=== PATIENT | female | born 1955 | race Caucasian/White ===

== ENCOUNTER 2018-10-06 21:52 | Emergency (ER) | payer OTHER ==
[2018-10-06 22:46] LABS: Absolute Monocytes 0.9 K/uL (0.1-1.3); Basophils % 0.6 % (0-1.3); Eosinophils % 0.4 % (0-4.4); Hematocrit 41.3 % (36.0-45.0); Lymphocytes % 7.6 % (15.3-44.8); MPV 9.1 fL (7.6-11.3); RBC Red Blood Cell Count 4.67 M/uL (3.86-4.86)
[2018-10-06 22:51] LABS: Protime INR 1.03
[2018-10-06] MEDS ORDERED: MORPHINE 4 MG/ML SYR ONE (23:02)
[2018-10-06] MEDS ORDERED: METHOCARBAMOL 1,000 MG/10 ML VIAL IV ONE (23:02)
[2018-10-06] MEDS ORDERED: ONDANSETRON 4 MG/2 ML VIAL ONE (23:03)
[2018-10-06] MEDS ORDERED: NA CHLORIDE 0.9% 1,000 ML ONE (23:03)
[2018-10-06] MEDS ORDERED: NA CHLORIDE 0.9% 100 ML IV ONE (23:03)
[2018-10-06 23:10] LABS: Albumin 3.5 g/dL (3.4-5.0); Bilirubin Direct 0.1 mg/dL (0-0.2); Bilirubin Total 0.3 mg/dL (0.2-1.0); Magnesium 2.1 mg/dL (1.8-2.4); Protein, Total 6.9 g/dL (6.4-8.2)
[2018-10-06 23:11] LABS: Potassium 2.9 mmol/L (3.5-5.1)
[2018-10-06] MEDS ORDERED: POTASSIUM CL SA 10 MEQ TAB PO ONE (23:31)
[2018-10-06] MEDS ORDERED: KCL 20 MEQ/100 mL IVPB 20 MEQ/100 ML BAG IV ONE (23:31)
[2018-10-07] MEDS ORDERED: HYDROCODONE/APAP 7.5/325 MG TAB ONE (01:29)
--- NOTE | 2018-10-07 02:41 | ER ---
Nurse's Notes [facility] Name: Vandana Garcia Age: 63 yrs Sex: Female : 1955 Arrival Date: 10/06/2018 Time: 21:57 Bed 8 Private MD: Diagnosis: Hypokalemia;Muscle spasm;Pain in left ankle and joints of left foot Presentation: 10/06 21:58 Presenting complaint: Patient states: Bilateral leg cramps starting in upper thigh and tl2 radiating down to ankles, started about 1 hour ago. EMS gave 5 mg Versed IVP, pt states pain has decreased from 10/10 to 4/10. Transition of care: patient was not received from another setting of care. Onset of symptoms was October 06, 2018 at 21:00. Risk Assessment: Do you want to hurt yourself or someone else? Patient reports no desire to harm self or others. Initial Sepsis Screen: Does the patient meet any 2 criteria? No. Patient's initial sepsis screen is negative. Does the patient have a suspected source of infection? No. Patient's initial sepsis screen is negative. Care prior to arrival: Medication(s) given: 5 mg Versed IVP IV initiated. 20 GA, in the right forearm. 21:58 Method Of Arrival: EMS: [facility] tl2 21:58 Acuity: FEDE 3 tl2 Triage Assessment: 22:03 General: Appears in no apparent distress. uncomfortable, Behavior is calm, cooperative, tl2 appropriate for age. Pain: Complains of pain in right leg and left leg Pain radiates to SEGUNDO ankles Pain currently is 4 out of 10 on a pain scale. Quality of pain is described as crampy, Pain began 1 hour ago. Is intermittent, episodic. Neuro: Level of Consciousness is awake, alert, obeys commands, Oriented to person, place, time, situation. Cardiovascular: Denies chest pain. Respiratory: Airway is patent Respiratory effort is even, unlabored, Respiratory pattern is regular, symmetrical. GI: No signs and/or symptoms were reported involving the gastrointestinal system. : No signs and/or symptoms were reported regarding the genitourinary system. Derm: Skin is pink, warm \T\ dry. Historical: - Allergies: 22:03 Zithromax; tl2 22:03 Phenergan; tl2 - Home Meds: 22:03 carvedilol oral oral [Active]; hydrochlorothiazide Oral [Active]; sertraline oral oral tl2 [Active]; - PMHx: 22:03 Hypertension; Depression; tl2 - Immunization history:: Adult Immunizations up to date. - Social history:: Smoking status: Patient/guardian denies using tobacco. - Ebola Screening: : No symptoms or risks identified at this time. Screenin:05 Abuse screen: Denies threats or abuse. Nutritional screening: No deficits noted. tl2 Tuberculosis screening: No symptoms or risk factors identified. Fall Risk Gait- Impaired (20 pts.). Assessment: 22:03 General: see triage assessment. tl2 23:00 Reassessment: Patient appears in no apparent distress at this time. Patient and/or tl2 family updated on plan of care and expected duration. Pain level reassessed. Patient is alert, oriented x 3, equal unlabored respirations, skin warm/dry/pink. 10/07 00:00 Reassessment: Patient appears in no apparent distress at this time. Patient and/or tl2 family updated on plan of care and expected duration. Pain level reassessed. Pt appears to be sleeping, RR even and unlabored. 00:58 Reassessment: Patient appears in no apparent distress at this time. tl2 01:40 Reassessment: Patient appears in no apparent distress at this time. Patient and/or tl2 family updated on plan of care and expected duration. Pain level reassessed. Patient is alert, oriented x 3, equal unlabored respirations, skin warm/dry/pink. pt able to bear weight on legs but reports pain in left ankle. Awaiting results of repeat K level. 02:49 Reassessment: Unable to reach family, MD and charge nurse approved pt staying in ER tl2 until 0600. 04:00 Reassessment: Patient appears in no apparent distress at this time. Patient and/or tl2 family updated on plan of care and expected duration. Pain level reassessed. pt appears to be sleeping, RR even and unlabored. 06:13 Reassessment: Patient appears in no apparent distress at this time. Patient and/or tl2 family updated on plan of care and expected duration. Pain level reassessed. Patient is alert, oriented x 3, equal unlabored respirations, skin warm/dry/pink. Pt verbalized understanding of discharge instructions, need for follow up and prescription usage. Vital Signs: 10/06 22:03 BP 116 / 70; Pulse 89; Resp 18; Temp 99.2(O); Pulse Ox 98% on R/A; Weight 105.69 kg; tl2 Height 5 ft. 7 in. (170.18 cm); Pain 4/10; 23:05 BP 111 / 64; Pulse 84; Resp 23; Pulse Ox 94% on R/A; tl2 23:51 BP 108 / 68; Pulse 84; Resp 18; Pulse Ox 98% on 2 lpm NC; tl2 10/07 00:57 BP 106 / 59; Pulse 84; Resp 16; Pulse Ox 97% on 2 lpm NC; tl2 01:39 BP 107 / 58; Pulse 86; Resp 24; Pulse Ox 97% on R/A; tl2 02:49 BP 108 / 63; Pulse 73; Resp 16; Pulse Ox 94% on R/A; tl2 05:35 BP 106 / 59; Pulse 66; Resp 18; Pulse Ox 96% on R/A; tl2 10/06 22:03 Body Mass Index 36.49 (105.69 kg, 170.18 cm) tl2 ED Course: 10/06 21:57 Patient arrived in ED. tl2 22:00 Triage completed. tl2 22:03 Arm band placed on right wrist. tl2 22:05 Patient has correct armband on for positive identification. Placed in gown. Bed in low tl2 position. Call light in reach. Side rails up X2. Adult w/ patient. 22:05 Maintain EMS IV. Dressing intact. Good blood return noted. Site clean \T\ dry. Gauge \T\ tl 2 site: 20 g R AC. 22:21 Ángel Olivas MD is Attending Physician. kdr 22:31 Ashley Stoddard RN is Primary Nurse. tl2 10/07 01:19 X-ray completed. Portable x-ray completed in exam room. Patient tolerated procedure tm4 well. 01:21 Ankle Left 3 View XRAY In Process Unspecified. EDMS 01:39 Potassium: Draw when all potassium has infused Sent. tl2 04:00 No provider procedures requiring assistance completed. IV discontinued, intact, tl2 bleeding controlled, No redness/swelling at site. Pressure dressing applied. Administered Medications: 10/06 23:03 Drug: NS 0.9% 1000 ml Route: IV; Rate: 1 bolus; Site: right antecubital; tl2 10/07 01:30 Follow up: IV Status: Completed infusion; IV Intake: 1000ml tl2 10/06 23:03 Drug: morphine 4 mg Route: IVP; Site: right antecubital; tl2 10/07 00:00 Follow up: Response: No adverse reaction; Pain is decreased tl2 10/06 23:04 Drug: Zofran 4 mg Route: IVP; Site: right antecubital; tl2 10/07 00:00 Follow up: Response: No adverse reaction tl2 10/06 23:04 Drug: Robaxin 1 grams Route: IVPB; Infused Over: 1 hrs; Site: right antecubital; tl2 10/07 00:00 Follow up: IV Status: Completed infusion tl2 10/06 23:51 Drug: Potassium Chloride 20 mEq Route: IV; Rate: calculated rate; Site: right tl2 antecubital; 10/07 01:30 Follow up: IV Status: Completed infusion tl2 01:38 Drug: [place] (7.5 mg-325 mg) 1 tabs Route: PO; tl2 02:30 Follow up: Response: No adverse reaction; Pain is decreased tl2 01:39 Drug: Potassium Chloride 40 mEq Route: PO; tl2 03:00 Follow up: Response: No adverse reaction tl2 06:16 Drug: Potassium Chloride 40 mEq Route: PO; tl2 06:19 Follow up: Response: No adverse reaction; Medication administered at discharge. tl2 Intake: 01:30 IV: 1000ml; Total: 1000ml. tl2 Outcome: 02:41 Discharge ordered by . kdr 04:00 Discharged to home via wheelchair, with crutches, with family. tl2 04:00 Condition: stable 04:00 Discharge instructions given to patient, family, Instructed on discharge instructions, follow up and referral plans. medication usage, crutch walking, Demonstrated understanding of instructions, follow-up care, medications, crutch walking, Prescriptions given X 5 06:20 Patient left the ED. tl2 Signatures: Dispatcher [employer] EDMS Ángel Olivas MD MD kdr Marroquin, Tracy 4 Ashley Stoddard RN RN tl2 Corrections: (The following items were deleted from the chart) 10/06 23:08 22:05 Maintain EMS IV. Dressing intact. Good blood return noted. Site clean \T\ dry. tl2 Gauge \T\ site: 20 g R FA. tl2 23:52 23:51 BP 108 / 68; Pulse 84bpm; Resp 18bpm; Pulse Ox 98% RA; tl2 tl2
--- NOTE | 2018-10-07 02:41 | EDPHYS ---
Physician Documentation [facility] Name: Vandana Garcia Age: 63 yrs Sex: Female : 1955 Arrival Date: 10/06/2018 Time: 21:57 Bed 8 Private MD: ED Physician Ángel Olivas HPI: 10/07 03:49 This 63 yrs old Female presents to ER via EMS with complaints of Leg cramps. kdr 03:49 The patient presents with pain, that is acute, spasm, The patient had acute onset of kdr leg cramps that were very painful earlier today. She also c/o pain and redness around the lateral aspect of her left ankle which also started today.. The complaints affect the right leg and left leg. Context: The problem was sustained at home, resulted from an unknown cause, the patient can fully bear weight, the patient is able to ambulate, with moderate difficulty, Problem is a result from a previous injury: No. Onset: The symptoms/episode began/occurred suddenly, today. Modifying factors: The symptoms are alleviated by nothing. the symptoms are aggravated by movement, weight bearing. Associated signs and symptoms: Pertinent positives: calf tenderness, The patient states that the entirety of both legs is cramping and painful. Treatment prior to arrival includes: EMS gave versed. Treatment prior to arrival includes: She had minor relief. Severity of symptoms: At their worst the symptoms were incapacitating, just prior to arrival, earlier today, in the emergency department the symptoms have improved, mildly. The patient has not experienced similar symptoms in the past. The patient has not recently seen a physician. Historical: - Allergies: 10/06 22:03 Zithromax; tl2 22:03 Phenergan; tl2 - Home Meds: 22:03 carvedilol oral oral [Active]; hydrochlorothiazide Oral [Active]; sertraline oral oral tl2 [Active]; - PMHx: 22:03 Hypertension; Depression; tl2 - Immunization history:: Adult Immunizations up to date. - Social history:: Smoking status: Patient/guardian denies using tobacco. - Ebola Screening: : No symptoms or risks identified at this time. ROS: 10/07 03:49 Constitutional: Negative for fever, chills, and weight loss, Eyes: Negative for injury, kdr pain, redness, and discharge, ENT: Negative for injury, pain, and discharge, Neck: Negative for injury, pain, and swelling, Cardiovascular: Negative for chest pain, palpitations, and edema, Respiratory: Negative for shortness of breath, cough, wheezing, and pleuritic chest pain, Abdomen/GI: Negative for abdominal pain, nausea, vomiting, diarrhea, and constipation, Back: Negative for injury and pain, : Negative for injury, bleeding, discharge, and swelling, Skin: Negative for injury, rash, and discoloration, Neuro: Negative for headache, weakness, numbness, tingling, and seizure activity. Psych: Negative for depression, anxiety, suicide ideation, homicidal ideation, and hallucinations, Allergy/Immunology: Negative for hives, rash, and allergies, Endocrine: Negative for neck swelling, polydipsia, polyuria, polyphagia, and marked weight changes, Hematologic/Lymphatic: Negative for swollen nodes, abnormal bleeding, and unusual bruising. MS/extremity: Positive for pain, cramping. Exam: 03:49 Constitutional: This is a well developed, well nourished patient who is awake, alert, kdr and in moderate distress. Head/Face: Normocephalic, atraumatic. Eyes: Pupils equal round and reactive to light, extra-ocular motions intact. Lids and lashes normal. Conjunctiva and sclera are non-icteric and not injected. Cornea within normal limits. Periorbital areas with no swelling, redness, or edema. Neck: Trachea midline, no thyromegaly or masses palpated, and no cervical lymphadenopathy. Supple, full range of motion without nuchal rigidity, or vertebral point tenderness. No Meningismus. Chest/axilla: Normal chest wall appearance and motion. Nontender with no deformity. No lesions are appreciated. Cardiovascular: Regular rate and rhythm with a normal S1 and S2. No gallops, murmurs, or rubs. Normal PMI, no JVD. No pulse deficits. Respiratory: Lungs have equal breath sounds bilaterally, clear to auscultation and percussion. No rales, rhonchi or wheezes noted. No increased work of breathing, no retractions or nasal flaring. Abdomen/GI: Soft, non-tender, with normal bowel sounds. No distension or tympany. No guarding or rebound. No evidence of tenderness throughout. Back: No spinal tenderness. No costovertebral tenderness. Full range of motion. Skin: Warm, dry with normal turgor. Normal color with no rashes, no lesions, and no evidence of cellulitis. Neuro: Awake and alert, GCS 15, oriented to person, place, time, and situation. Cranial nerves II-XII grossly intact. Motor strength 5/5 in all extremities. Sensory grossly intact. Cerebellar exam normal. Normal gait. Psych: Awake, alert, with orientation to person, place and time. Behavior, mood, and affect are within normal limits. 03:49 Musculoskeletal/extremity: Extremities: grossly normal except: The patient is messaging both legs trying to work the cramping out of her thighs, ROM: no acute changes, Circulation is intact in all extremities. Sensation intact. Weight bearing: able to fully bear weight. Vital Signs: 10/06 22:03 BP 116 / 70; Pulse 89; Resp 18; Temp 99.2(O); Pulse Ox 98% on R/A; Weight 105.69 kg; tl2 Height 5 ft. 7 in. (170.18 cm); Pain 4/10; 23:05 BP 111 / 64; Pulse 84; Resp 23; Pulse Ox 94% on R/A; tl2 23:51 BP 108 / 68; Pulse 84; Resp 18; Pulse Ox 98% on 2 lpm NC; tl2 02 00:57 BP 106 / 59; Pulse 84; Resp 16; Pulse Ox 97% on 2 lpm NC; tl2 01:39 BP 107 / 58; Pulse 86; Resp 24; Pulse Ox 97% on R/A; tl2 02:49 BP 108 / 63; Pulse 73; Resp 16; Pulse Ox 94% on R/A; tl2 05:35 BP 106 / 59; Pulse 66; Resp 18; Pulse Ox 96% on R/A; tl2 10/06 22:03 Body Mass Index 36.49 (105.69 kg, 170.18 cm) tl2 MDM: 02:41 Patient medically screened. kdr 03:49 Data reviewed: vital signs, nurses notes, lab test result(s). Counseling: I had a kdr detailed discussion with the patient and/or guardian regarding: the historical points, exam findings, and any diagnostic results supporting the discharge/admit diagnosis, lab results, the need for outpatient follow up. 06:12 ED course: Given only marginally elevated WBC and normal ESR not likely to be septic kdr joint. 10/06 22:28 Order name: Basic Metabolic Panel; Complete Time: 23:42 [facility] 10/06 22:28 Order name: CBC with Diff; Complete Time: 23:42 [facility] 10/06 22:28 Order name: LFT's; Complete Time: 23:42 [facility] 10/06 22:28 Order name: Magnesium; Complete Time: 23:42 [facility] 10/06 22:28 Order name: NT PRO-BNP; Complete Time: 23:42 [facility] 10/06 22:28 Order name: PT-INR; Complete Time: 23:42 [facility] 10/07 00:24 Order name: Potassium: Draw when all potassium has infused; Complete Time: 02:06 [facility] 10/07 01:06 Order name: Ankle Left 3 View XRAY kdr 10/07 01:06 Order name: ESR; Complete Time: 01:44 [facility] 10/06 22:28 Order name: IV Saline Lock; Complete Time: 22:32 [facility] 10/06 22:28 Order name: Labs collected and sent; Complete Time: 22:41 [facility] 10/07 06:20 Order name: Crutches; Complete Time: 06:20 tl2 Administered Medications: 10/06 23:03 Drug: NS 0.9% 1000 ml Route: IV; Rate: 1 bolus; Site: right antecubital; 2 10/07 01:30 Follow up: IV Status: Completed infusion; IV Intake: 1000ml tl2 10/06 23:03 Drug: morphine 4 mg Route: IVP; Site: right antecubital; tl2 10/07 00:00 Follow up: Response: No adverse reaction; Pain is decreased 2 10/06 23:04 Drug: Zofran 4 mg Route: IVP; Site: right antecubital; tl2 10/07 00:00 Follow up: Response: No adverse reaction 2 10/06 23:04 Drug: Robaxin 1 grams Route: IVPB; Infused Over: 1 hrs; Site: right antecubital; tl2 10/07 00:00 Follow up: IV Status: Completed infusion tl2 10/06 23:51 Drug: Potassium Chloride 20 mEq Route: IV; Rate: calculated rate; Site: right tl2 antecubital; 10/07 01:30 Follow up: IV Status: Completed infusion tl2 01:38 Drug: [place] (7.5 mg-325 mg) 1 tabs Route: PO; tl2 02:30 Follow up: Response: No adverse reaction; Pain is decreased tl2 01:39 Drug: Potassium Chloride 40 mEq Route: PO; tl2 03:00 Follow up: Response: No adverse reaction tl2 06:16 Drug: Potassium Chloride 40 mEq Route: PO; tl2 06:19 Follow up: Response: No adverse reaction; Medication administered at discharge. tl2 Disposition: 10/07/18 02:41 Discharged to Home. Impression: Hypokalemia, Muscle spasm, Pain in left ankle and joints of left foot. - Condition is Stable. - Discharge Instructions: Muscle Cramps and Spasms, [id number], Ankle Pain, Joint Pain, [id number], Hypokalemia. - Prescriptions for Keflex 500 mg Oral Capsule - take 1 capsule by ORAL route every 8 hours for 7 days; 21 capsule. Prednisone 20 mg Oral Tablet - take 2 tablet by ORAL route once daily for 5 days; 10 tablet. Tylenol- Codeine #3 300-30 mg Oral Tablet - take 2 tablets by ORAL route every 6 hours As needed; 12 tablet. Potassium Chloride 20 meq Oral Packet - take 1 packet by ORAL route once daily 1 packet in 6 (six) ounces of water or juice; Take after meal; 30 packet. Cyclobenzaprine 5 mg Oral Tablet - take 1 tablet by ORAL route 3 times per day As needed; 15 tablet. - Medication Reconciliation Form, Thank You Letter, Antibiotic Education, Prescription Opioid Use form. - Follow up: Private Physician; When: 2 - 3 days; Reason: If symptoms return, Further diagnostic work-up, Recheck today's complaints, Continuance of care, Re-evaluation by your physician. - Problem is new. - Symptoms have improved. Signatures: Dispatcher [employer] EDWV Ángel Olivas MD MD kdr Knox, Taylor, RN RN tl2 Corrections: (The following items were deleted from the chart) 06:20 02:41 10/07/2018 02:41 Discharged to Home. Impression: Hypokalemia; Muscle spasm; Pain tl2 in left ankle and joints of left foot. Condition is Stable. Forms are Medication Reconciliation Form, Thank You Letter, Antibiotic Education, Prescription Opioid Use. Follow up: Private Physician; When: 2 - 3 days; Reason: If symptoms return, Further diagnostic work-up, Recheck today's complaints, Continuance of care, Re-evaluation by your physician. Problem is new. Symptoms have improved. kdr
[2018-10-07] MEDS ORDERED: POTASSIUM CL SA 10 MEQ TAB PO ONE (06:05)
[2018-10-07 06:26] VITALS: TEMP 99.2
[2018-10-07 06:33] VITALS: BP 106/59; O2SAT 96
--- NOTE | 2018-10-07 09:39 | RAD REPORT ---
EXAM DESCRIPTION: RAD - Ankle Left 3 View -10/07/2018 1:21 am CLINICAL HISTORY: Left ankle pain FINDINGS: No fracture or dislocation is seen. Large plantar calcaneal spurs
== END 2018-10-07 06:20 | disposition home or self-care (01) ==
LOC: ER 21:52
DX: M62.838 Other muscle spasm (principal); E87.6 Hypokalemia; I10 Essential (primary) hypertension; F32.9 Major depressive disorder, single episode, unspecified; Z88.1 Allergy status to other antibiotic agents; Z88.8 Allergy status to other drugs, medicaments and biological substances
CPT/HCPCS: 36415 ×2; 73610; 80048; 80076; 83735; 83880; 84132; 85025; 85610; 85652; J2405; J2800; J7030; 96365; 96375; 99284

== ENCOUNTER 2020-01-29 15:51 | Emergency (ER) | payer OTHER ==
--- OUTSIDE RECORDS SUMMARY | 2020-01-29 15:53 | XMS REPORT | Continuity of Care Document ---
:1955 Author Organization [facility] t Address [address] [place] [address] Care Team Providers Name Role Phone Singer CROOK Attending Clinician Doctor Unassigned, Name Attending Clinician Unavailable Badger Raul CONTE Attending Clinician Problems This patient has no known problems. Allergies, Adverse Reactions, Alerts This patient has no known allergies or adverse reactions. Medications This patient has no known medications. Procedures This patient has no known procedures. Encounters Start End Encounter Admission Attending Care Care Encounter Source Date/Time Date/Time Type Type Clinicians Facility Department ID 2019-10-22 2019-10-22 Emergency SONIA Banegas [id number] 07:56:20 12:04:00 Jeffy Dell [id number] [place] [id number] [place] [id number] 2019-10-22 2019-10-22 Orders Doctor ABBASI [id number] 00:00:00 00:00:00 Only UnassignedELZA [id number] [place] [facility] [id number] 2019-08-07 2019-08-07 Orders Doctor ABBASI [id number] 00:00:00 00:00:00 Only UnassignedELZA [id number] [place] [facility] [id number] 2019-04-11 2019-04-11 RefMARIA ISABEL Sosa [id number] 00:00:00 00:00:00 [facility] [id number] [facility] [id number] Results This patient has no known results.
[2020-01-29] MEDS ORDERED: dexAMETHasone 10 MG/ML VIAL ONE (17:02)
[2020-01-29] MEDS ORDERED: DIAZEPAM 5 MG TABLET ONE (17:02)
--- NOTE | 2020-01-29 17:15 | ER ---
Nurse's Notes [facility] Name: Vandana Garcia Age: 64 yrs Sex: Female : 1955 Arrival Date: 01/29/2020 Time: 15:56 Bed 4 Private MD: Diagnosis: Insect bite of other specified part of neck;Muscle spasm Presentation: 01/28 16:00 Chief complaint: Patient states: i got stung yesterday at noon and RIGHT side of my tw2 neck like 4 times, and today i had a little bit of a stiff neck and it feels like its getting stiffer on my left side now. it is still burning on the right side where i was stung, i took benadryl pill at noon and i put the cream on it as well like 3 or 4 times, the sting part is getting better but the LEFT side of my neck bothers me more. Coronavirus screen: Proceed with normal triage. Patient denies a cough. Patient denies shortness of breath or difficulty breathing. Patient denies measured and/or subjective temperature greater than 100.4F prior to today's visit. Patient denies travel on a cruise ship or to a country the [facility] currently lists as an affected area. Patient denies contact with known and/or suspected case of COVID-19. Ebola Screen: Patient denies travel to an Ebola-affected area in the 21 days before illness onset. Onset: The symptoms/episode began/occurred yesterday. Anaphylaxis evaluation, the patient reports or I have noted the following symptoms which indicate a significant risk of anaphylaxis:. Initial Sepsis Screen: Does the patient meet any 2 criteria? No. Patient's initial sepsis screen is negative. Does the patient have a suspected source of infection? No. Patient's initial sepsis screen is negative. Risk Assessment: Do you want to hurt yourself or someone else? Patient reports no desire to harm self or others. Onset of symptoms was January 28, 2020. 16:00 Method Of Arrival: Ambulatory tw2 16:00 Acuity: FEDE 4 tw2 Triage Assessment: 16:03 General: Appears in no apparent distress. uncomfortable, obese, well groomed, Behavior tw2 is calm, cooperative, appropriate for age. Pain: Complains of pain in right and left side of neck. Historical: - Allergies: 16:05 Phenergan; tw2 16:05 Zithromax; tw2 - Home Meds: 16:05 carvedilol Oral [Active]; sertraline 50 mg oral tab 1 tab once daily [Active]; tw2 16:06 "unknown muscle spams medication" [Active]; tw2 - PMHx: 16:05 Hypertension; Depression; muscle spams; tw2 - Immunization history:: Adult Immunizations. - Social history:: Smoking status: . Screenin:43 Abuse screen: Denies threats or abuse. Denies injuries from another. Nutritional sv screening: No deficits noted. Tuberculosis screening: No symptoms or risk factors identified. Fall Risk None identified. Assessment: 16:42 General: Appears in no apparent distress. uncomfortable, well developed, Behavior is sv calm, cooperative, appropriate for age. Pain: Complains of pain in right posterior aspect of neck, right lateral aspect of neck, left posterior aspect of neck and left lateral aspect of neck. Neuro: Level of Consciousness is awake, alert, obeys commands, Oriented to person, place, time, situation, Moves all extremities. Full function Gait is steady. Respiratory: Airway is patent Respiratory effort is even, unlabored, Respiratory pattern is regular, symmetrical. Derm: Skin is intact, Skin is pink, warm \\T\\ dry. Injury Description: Bite sustained to right posterior aspect of neck and right lateral aspect of neck caused by a bee, is from insect. 17:36 Reassessment: Patient appears in no apparent distress at this time. No changes from sv previously documented assessment. Patient and/or family updated on plan of care and expected duration. Pain level reassessed. Patient is alert, oriented x 3, equal unlabored respirations, skin warm/dry/pink. Vital Signs: 16:00 BP 148 / 97; Pulse 77; Resp 18; Temp 98.1(TE); Pulse Ox 97% on R/A; Weight 108.86 kg tw2 (R); Height 5 ft. 7 in. (170.18 cm); Pain 8/10; 16:00 Body Mass Index 37.59 (108.86 kg, 170.18 cm) tw2 ED Course: 15:56 Patient arrived in ED. mr 16:03 Triage completed. tw2 16:03 Arm band placed on. tw2 16:31 Gilberto, Francine, RN is Primary Nurse. sv 16:31 Mickail, Jeff, PA is PHCP. [facility] 16:31 Bill Zhang MD is Attending Physician. [facility] 16:43 Patient has correct armband on for positive identification. Bed in low position. Call sv light in reach. Door closed. Head of bed elevated. 17:36 No provider procedures requiring assistance completed. Patient did not have IV access sv during this emergency room visit. Administered Medications: 16:59 Drug: Decadron 10 mg Route: IM; Site: left deltoid; sv 17:35 Follow up: Response: No adverse reaction sv 16:59 Drug: Valium 5 mg Route: PO; sv 17:35 Follow up: Response: No adverse reaction sv Outcome: 17:14 Discharge ordered by MD. [facility] 17:36 Discharged to home via wheelchair, with friend. sv 17:36 Condition: stable 17:36 Condition: improved 17:36 Discharge instructions given to patient, Instructed on discharge instructions, follow up and referral plans. medication usage, Demonstrated understanding of instructions, follow-up care, medications, Prescriptions given X 2. 17:36 Patient left the ED. sv Signatures: Francine Macias, RN RN Jeff Crum PA PA [facility] Maddie Barnes mr Jewels Mcmahon, RN RN tw2
--- NOTE | 2020-01-29 17:15 | EDPHYS ---
Physician Documentation [facility] Name: Vandana Garcia Age: 64 yrs Sex: Female : 1955 Arrival Date: 01/29/2020 Time: 15:56 Bed 4 Private MD: ED Physician Bill Zhang HPI: 01/28 17:05 This 64 yrs old Female presents to ER via Ambulatory with complaints of Bee jmm Sting. 17:05 by a bee. Onset: The symptoms/episode began/occurred acutely, yesterday. Animal jmm information: is unknown, The animal is unknown and not captured. Animal control has not been notified, bee. Secondary to the bite the patient reports pain, swelling. Associated signs and symptoms: Pertinent positives: erythema at site, tenderness, Pertinent negatives: loss of consciousness, motor deficit, numbness distal to wound, suspected foreign body. Patient was stung at the right side of the neck, patient developed pain and stiffness to the left side of her neck this morning. Historical: - Allergies: 16:05 Phenergan; tw2 16:05 Zithromax; tw2 - Home Meds: 16:05 carvedilol Oral [Active]; sertraline 50 mg oral tab 1 tab once daily [Active]; tw2 16:06 "unknown muscle spams medication" [Active]; tw2 - PMHx: 16:05 Hypertension; Depression; muscle spams; tw2 - Immunization history:: Adult Immunizations. - Social history:: Smoking status: . ROS: 17:05 Constitutional: Negative for fever, chills, and weight loss. jmm 17:05 Cardiovascular: Negative for chest pain, palpitations, and edema, Respiratory: Negative for shortness of breath, cough, wheezing, and pleuritic chest pain. 17:05 Neck: Positive for pain with movement, stiffness. 17:05 All other systems are negative. Exam: 17:05 Constitutional: This is a well developed, well nourished patient who is awake, alert, jmm and in no acute distress. Head/Face: atraumatic. Eyes: EOMI, no conjunctival erythema appreciated ENT: Moist Mucus Membranes 17:05 Chest/axilla: Normal chest wall appearance and motion. Cardiovascular: Regular rate and rhythm. No edema appreciated Respiratory: Normal respirations, no respiratory distress appreciated Abdomen/GI: Non distended, soft Back: Normal ROM 17:05 Neck: erythema noted to the site of envenomation, mild ttp. Muscle spasm noted to the left scm muscle.. 17:05 Skin: erythema noted to the site of sting, mildly ttp. 17:05 Neuro: Orientation: is normal, Mentation: is normal, Memory: is normal. 17:05 Psych: Behavior/mood is pleasant, cooperative. Vital Signs: 16:00 BP 148 / 97; Pulse 77; Resp 18; Temp 98.1(TE); Pulse Ox 97% on R/A; Weight 108.86 kg tw2 (R); Height 5 ft. 7 in. (170.18 cm); Pain 8/10; 16:00 Body Mass Index 37.59 (108.86 kg, 170.18 cm) tw2 MDM: 16:32 Patient medically screened. [facility] 17:08 Data reviewed: vital signs, nurses notes. Counseling: I had a detailed discussion with axel the patient and/or guardian regarding: the historical points, exam findings, and any diagnostic results supporting the discharge/admit diagnosis, the need for outpatient follow up, to return to the emergency department if symptoms worsen or persist or if there are any questions or concerns that arise at home. ED course: Patient is alert and non toxic in appearance in the ED. PE findings consistent with bee sting and muscle spasm. Patient given wound infection return precautions. Patient understood and agrees with the plan of care. . Administered Medications: 16:59 Drug: Decadron 10 mg Route: IM; Site: left deltoid; sv 17:35 Follow up: Response: No adverse reaction sv 16:59 Drug: Valium 5 mg Route: PO; sv 17:35 Follow up: Response: No adverse reaction sv Disposition: 01/29/20 17:14 Discharged to Home. Impression: Insect bite of other specified part of neck, Muscle spasm. - Condition is Stable. - Discharge Instructions: Bee, Wasp, or Hornet Sting, Adult, Spasticity. - Prescriptions for orphenadrine citrate 100 mg Oral Tablet Sustained Release - take 1 tablet by ORAL route 2 times per day As needed; 20 tablet. Cephalexin 500 mg Oral Capsule - take 1 capsule by ORAL route every 6 hours for 10 days; 40 capsule. - Medication Reconciliation Form, Thank You Letter, Antibiotic Education, Prescription Opioid Use form. - Follow up: Private Physician; When: 2 - 3 days; Reason: Recheck today's complaints, Continuance of care, Re-evaluation by your physician. Addendum: 01/30/2020 18:41 Co-signature as Attending Physician, Bill Zhang MD I agree with the assessment and c timmons plan of care. Signatures: Francine Macias, RN RN Bill Land MD MD cha Mickail, Joel, PA PA jmm Wise, Tara RN RN tw2 Corrections: (The following items were deleted from the chart) 01/28 17:36 17:14 01/29/2020 17:14 Discharged to Home. Impression: Insect bite of other specified sv part of neck; Muscle spasm. Condition is Stable. Forms are Medication Reconciliation Form, Thank You Letter, Antibiotic Education, Prescription Opioid Use. Follow up: Private Physician; When: 2 - 3 days; Reason: Recheck today's complaints, Continuance of care, Re-evaluation by your physician. axel
[2020-01-29 17:42] VITALS: BP 148/97; TEMP 98.1; O2SAT 97
== END 2020-01-29 17:36 | disposition home or self-care (01) ==
LOC: ER 15:51
DX: S10.96XA Insect bite of unspecified part of neck, initial encounter (principal); R25.2 Cramp and spasm; W57.XXXA Bitten or stung by nonvenomous insect and other nonvenomous arthropods, initial encounter; Y93.9 Activity, unspecified; Y92.9 Unspecified place or not applicable; Z88.3 Allergy status to other anti-infective agents; I10 Essential (primary) hypertension
CPT/HCPCS: 96372; 99283; J1100

== ENCOUNTER 2020-02-28 10:13 | Emergency (ER) | payer OTHER ==
--- OUTSIDE RECORDS SUMMARY | 2020-02-28 10:18 | XMS REPORT | Continuity of Care Document ---
:1955 Author Organization [facility] t Address [address] [place] [address] Care Team Providers Name Role Phone Singer CROOK Attending Clinician Doctor Unassigned, Name Attending Clinician Unavailable [place] Raul CONTE Attending Clinician Problems This patient has no known problems. Allergies, Adverse Reactions, Alerts This patient has no known allergies or adverse reactions. Medications This patient has no known medications. Procedures This patient has no known procedures. Encounters Start End Encounter Admission Attending Care Care Encounter Source Date/Time Date/Time Type Type Clinicians Facility Department ID 2019-10-22 2019-10-22 Emergency SONIA Banegas [id number] 07:56:20 12:04:00 Jeffy Dell [id number] [place] [id number] [place] [id number] 2019-10-22 2019-10-22 Orders Doctor ABBASI [id number] 00:00:00 00:00:00 Only UnassignedELZA [id number] [place] [facility] [id number] 2019-08-07 2019-08-07 Orders Doctor ABBASI [id number] 00:00:00 00:00:00 Only UnassignedELZA [id number] [place] [facility] [id number] 2019-04-11 2019-04-11 RefMARIA ISABEL Sosa [id number] 00:00:00 00:00:00 [facility] [id number] [facility] [id number] Results This patient has no known results.
[2020-02-28 11:30] LABS: Absolute Lymphocytes (CBC) 1.2 K/uL (0.7-4.9); Basophils % 0.8 % (0-1.3); Hematocrit 39.2 % (36.0-45.0); Lymphocytes % 13.5 % (15.3-44.8); MPV 9.5 fL (7.6-11.3); RBC Red Blood Cell Count 4.41 M/uL (3.86-4.86)
[2020-02-28] MEDS ORDERED: NA CHLORIDE 0.9% 1,000 ML ONE (11:37)
[2020-02-28] MEDS ORDERED: POTASSIUM CL SA 10 MEQ TAB PO ONE (11:37)
[2020-02-28] MEDS ORDERED: KCL 20 MEQ/100 mL IVPB 20 MEQ/100 ML BAG IV ONE (11:37)
[2020-02-28] MEDS ORDERED: NA CHLORIDE 0.9% 100 ML IV ONE (11:37)
[2020-02-28] MEDS ORDERED: HYDROCODONE/APAP 10/325 TAB ONE (11:37)
[2020-02-28] MEDS ORDERED: METHOCARBAMOL 1,000 MG/10 ML VIAL IV ONE (11:37)
[2020-02-28 11:38] LABS: Potassium 3.8 mmol/L (3.5-5.1)
[2020-02-28] MEDS ORDERED: KETOROLAC 30 MG/ML INJ ONE (13:16)
--- NOTE | 2020-02-28 14:00 | EDPHYS ---
Physician Documentation [facility] Name: Vandana Garcia Age: 64 yrs Sex: Female : 1955 Arrival Date: 02/28/2020 Time: 10:25 Bed 6 Private MD: ED Physician Ángel Olivas HPI: 02/27 11:09 This 64 yrs old Female presents to ER via EMS with complaints of Leg Pain. kdr 11:09 The patient presents with pain, that is acute, spasm. The complaints affect the lateral kdr aspect of right thigh and right quadriceps. Context: The problem was sustained at home, resulted from an unknown cause, Often happens with low potassium, the patient is not able to bear weight, the patient is not able to ambulate, Problem is a result from a previous injury: No. Onset: The symptoms/episode began/occurred acutely, this morning, at 01:00. Modifying factors: The symptoms are alleviated by nothing. the symptoms are aggravated by nothing. Associated signs and symptoms: The patient has no apparent associated signs or symptoms. Treatment prior to arrival includes: no previous treatment. Severity of symptoms: At their worst the symptoms were severe, incapacitating, in the emergency department the symptoms are unchanged. The patient has experienced similar episodes in the past, a few times. The patient has not recently seen a physician. Historical: - Allergies: 10:33 Phenergan; iw 10:33 Zithromax; iw - Home Meds: 10:33 carvedilol 6.25 mg oral tab 2 times per day [Active]; sertraline 50 mg Oral tab 1 tab iw once daily [Active]; omeprazole 40 mg Oral cpDR 1 cap once daily [Active]; - PMHx: 10:33 Depression; Hypertension; muscle spams; iw - PSHx: 10:33 Cholecystectomy; left knee; Tonsillectomy; iw - Immunization history:: Adult Immunizations not up to date. - Social history:: Smoking status: Patient denies any tobacco usage or history of. ROS: 11:09 Constitutional: Negative for fever, chills, and weight loss, Eyes: Negative for injury, kdr pain, redness, and discharge, ENT: Negative for injury, pain, and discharge, Neck: Negative for injury, pain, and swelling, Cardiovascular: Negative for chest pain, palpitations, and edema, Respiratory: Negative for shortness of breath, cough, wheezing, and pleuritic chest pain, Abdomen/GI: Negative for abdominal pain, nausea, vomiting, diarrhea, and constipation, Back: Negative for injury and pain, : Negative for injury, bleeding, discharge, and swelling, Skin: Negative for injury, rash, and discoloration, Neuro: Negative for headache, weakness, numbness, tingling, and seizure activity. Psych: Negative for depression, anxiety, suicide ideation, homicidal ideation, and hallucinations, Allergy/Immunology: Negative for hives, rash, and allergies, Endocrine: Negative for neck swelling, polydipsia, polyuria, polyphagia, and marked weight changes, Hematologic/Lymphatic: Negative for swollen nodes, abnormal bleeding, and unusual bruising. 11:09 MS/extremity: Positive for of the right leg and left leg. Exam: 11:09 Constitutional: This is a well developed, well nourished patient who is awake, alert, kdr and in moderate distress. Head/Face: Normocephalic, atraumatic. Eyes: Pupils equal round and reactive to light, extra-ocular motions intact. Lids and lashes normal. Conjunctiva and sclera are non-icteric and not injected. Cornea within normal limits. Periorbital areas with no swelling, redness, or edema. Neck: Trachea midline, no thyromegaly or masses palpated, and no cervical lymphadenopathy. Supple, full range of motion without nuchal rigidity, or vertebral point tenderness. No Meningismus. Chest/axilla: Normal chest wall appearance and motion. Nontender with no deformity. No lesions are appreciated. Abdomen/GI: Soft, non-tender, with normal bowel sounds. No distension or tympany. No guarding or rebound. No evidence of tenderness throughout. Back: No spinal tenderness. No costovertebral tenderness. Full range of motion. Skin: Warm, dry with normal turgor. Normal color with no rashes, no lesions, and no evidence of cellulitis. MS/ Extremity: Pulses equal, no cyanosis. Neurovascular intact. Full, normal range of motion. Neuro: Awake and alert, GCS 15, oriented to person, place, time, and situation. Cranial nerves II-XII grossly intact. Motor strength 5/5 in all extremities. Sensory grossly intact. Cerebellar exam normal. Normal gait. Psych: Awake, alert, with orientation to person, place and time. Behavior, mood, and affect are within normal limits. Vital Signs: 10:29 BP 129 / 90; Pulse 68; Resp 16 S; Temp 98.2; Pulse Ox 97% on R/A; Weight 113.4 kg; iw Height 5 ft. 7 in. (170.18 cm); Pain 8/10; 13:00 BP 149 / 81; Pulse 63; Resp 16; Pulse Ox 98% on R/A; Pain 8/10; em 10:29 Body Mass Index 39.16 (113.40 kg, 170.18 cm) iw MDM: 11:09 Data reviewed: vital signs, nurses notes, lab test result(s). Counseling: I had a kdr detailed discussion with the patient and/or guardian regarding: the historical points, exam findings, and any diagnostic results supporting the discharge/admit diagnosis, lab results. 13:59 Patient medically screened. kdr 02/27 11:01 Order name: CBC with Diff; Complete Time: 13:57 kdr 02/27 11:01 Order name: Chem 7; Complete Time: 13:57 kdr Administered Medications: 11:52 Drug: Potassium Chloride 40 mEq Route: PO; em 11:52 Drug: NS 0.9% 1000 ml Route: IV; Rate: 1 bolus; Site: left antecubital; em 11:52 Drug: Isola 10 mg-325 mg 1 tabs Route: PO; em 12:35 Follow up: Response: No adverse reaction iw 11:55 Drug: Robaxin 1 grams Route: IVPB; Infused Over: 1 hrs; Site: left antecubital; em 12:17 Drug: Potassium Chloride 20 mEq Route: IV; Rate: calculated rate; Site: right iw antecubital; 13:26 Drug: TORadol - Ketorolac 15 mg Route: IVP; Site: left antecubital; iw Disposition: 02/28/20 13:59 Discharged to Home. Impression: Muscle spasm, Other muscle spasm - Lower extremities. - Condition is Stable. - Discharge Instructions: Muscle Cramps and Spasms. - Prescriptions for Robaxin 500 mg Oral Tablet - take 2 tablet by ORAL route every 6 hours As needed; 40 tablet. Tramadol 50 mg Oral Tablet - take 1 tablet by ORAL route every 8 hours as needed; 12 tablet. - Medication Reconciliation Form, Thank You Letter, Prescription Opioid Use form. - Follow up: Private Physician; When: 2 - 3 days; Reason: If symptoms return, Further diagnostic work-up, Recheck today's complaints, Continuance of care, Re-evaluation by your physician. - Problem is an acute exacerbation. - Symptoms have improved. - Notes: Please consieder taking daily potassium supplements Signatures: Dispatcher [employer] EDÁngel White MD MD kdr Adrian Juarez RN RN Parul Peters RN RN iw Corrections: (The following items were deleted from the chart) 14:28 13:59 02/28/2020 13:59 Discharged to Home. Impression: Muscle spasm; Other muscle spasm iw - Lower extremities. Condition is Stable. Forms are Medication Reconciliation Form, Thank You Letter, Antibiotic Education, Prescription Opioid Use. Follow up: Private Physician; When: 2 - 3 days; Reason: If symptoms return, Further diagnostic work-up, Recheck today's complaints, Continuance of care, Re-evaluation by your physician. Problem is an acute exacerbation. Symptoms have improved. kdr
--- NOTE | 2020-02-28 14:00 | ER ---
Nurse's Notes [facility] Name: Vandana Garcia Age: 64 yrs Sex: Female : 1955 Arrival Date: 02/28/2020 Time: 10:25 Bed 6 Private MD: Diagnosis: Muscle spasm;Other muscle spasm-Lower extremities Presentation: 02/27 10:29 Chief complaint: EMS states: leg cramps started at 0130, couldn't get out of bed, has iw had previous episodes of leg cramping and her potassium was low. Coronavirus screen: Proceed with normal triage. Patient denies a cough. Patient denies shortness of breath or difficulty breathing. Patient denies measured and/or subjective temperature greater than 100.4F prior to today's visit. Patient denies travel on a cruise ship or to a country the [facility] currently lists as an affected area. Patient denies contact with known and/or suspected case of COVID-19. Ebola Screen: Patient negative for fever greater than or equal to 101.5 degrees Fahrenheit, and additional compatible Ebola Virus Disease symptoms Patient denies exposure to infectious person. Patient denies travel to an Ebola-affected area in the 21 days before illness onset. No symptoms or risks identified at this time. Initial Sepsis Screen: Does the patient meet any 2 criteria? No. Patient's initial sepsis screen is negative. Does the patient have a suspected source of infection? No. Patient's initial sepsis screen is negative. Risk Assessment: Do you want to hurt yourself or someone else? Patient reports no desire to harm self or others. Onset of symptoms was February 28, 2020. Care prior to arrival: Medication(s) given: Normal saline infusion, 500 mL, IV initiated. 20 GA, in the left antecubital area. 10:29 Method Of Arrival: EMS: [facility] iw 10:29 Acuity: FEDE 3 iw Historical: - Allergies: 10:33 Phenergan; iw 10:33 Zithromax; iw - Home Meds: 10:33 carvedilol 6.25 mg oral tab 2 times per day [Active]; sertraline 50 mg Oral tab 1 tab iw once daily [Active]; omeprazole 40 mg Oral cpDR 1 cap once daily [Active]; - PMHx: 10:33 Depression; Hypertension; muscle spams; iw - PSHx: 10:33 Cholecystectomy; left knee; Tonsillectomy; iw - Immunization history:: Adult Immunizations not up to date. - Social history:: Smoking status: Patient denies any tobacco usage or history of. Screenin:36 Abuse screen: Denies threats or abuse. Denies injuries from another. Nutritional iw screening: No deficits noted. Tuberculosis screening: No symptoms or risk factors identified. Fall Risk IV access (20 points). Assessment: 10:35 General: Appears in no apparent distress. Behavior is calm, cooperative. Pain: iw Complains of pain in buttocks, pelvis, right leg and left leg. Neuro: Level of Consciousness is awake, alert, obeys commands, Oriented to person, place, time, situation, Moves all extremities. Full function. Cardiovascular: Patient's skin is warm and dry. Respiratory: Airway is patent Respiratory effort is even, unlabored, Respiratory pattern is regular. GI: Abdomen is non-distended. Derm: Skin is intact, is healthy with good turgor. Musculoskeletal: Range of motion: intact in all extremities, Reports pain in right leg and left leg. 13:00 Reassessment: states pain medication has not helped, rates pain 8/10, Dr. Olivas em notified. 13:37 Reassessment: Patient appears in no apparent distress at this time. pt medicated with iw Toradol 15 mg IVP, pt repositioned in bed , given pillow. Vital Signs: 10:29 BP 129 / 90; Pulse 68; Resp 16 S; Temp 98.2; Pulse Ox 97% on R/A; Weight 113.4 kg; iw Height 5 ft. 7 in. (170.18 cm); Pain 8/10; 13:00 BP 149 / 81; Pulse 63; Resp 16; Pulse Ox 98% on R/A; Pain 8/10; em 10:29 Body Mass Index 39.16 (113.40 kg, 170.18 cm) iw ED Course: 10:25 Patient arrived in ED. iw 10:31 Triage completed. iw 10:31 Arm band placed on. iw 10:35 Parul Mendieta, RN is Primary Nurse. iw 10:36 No provider procedures requiring assistance completed. Maintain EMS IV. Dressing iw intact. Good blood return noted. Site clean \T\ dry. Gauge \T\ site: 20 LAC. 10:50 Patient has correct armband on for positive identification. iw 10:52 Ángel Olivas MD is Attending Physician. kdr 14:27 IV discontinued, intact, bleeding controlled, No redness/swelling at site. Pressure iw dressing applied. Administered Medications: 11:52 Drug: Potassium Chloride 40 mEq Route: PO; em 11:52 Drug: NS 0.9% 1000 ml Route: IV; Rate: 1 bolus; Site: left antecubital; em 11:52 Drug: [place] 10 mg-325 mg 1 tabs Route: PO; em 12:35 Follow up: Response: No adverse reaction iw 11:55 Drug: Robaxin 1 grams Route: IVPB; Infused Over: 1 hrs; Site: left antecubital; em 12:17 Drug: Potassium Chloride 20 mEq Route: IV; Rate: calculated rate; Site: right iw antecubital; 13:26 Drug: TORadol - Ketorolac 15 mg Route: IVP; Site: left antecubital; iw Outcome: 13:59 Discharge ordered by . kdr 14:27 Discharged to home via wheelchair. iw 14:27 Condition: good 14:27 Discharge instructions given to patient, Instructed on discharge instructions, follow up and referral plans. medication usage, Demonstrated understanding of instructions, follow-up care, medications, Prescriptions given X 2. 14:28 Patient left the ED. iw Signatures: Ángel Olivas MD MD kdr Adrian Juarez RN RN em Parul Mendieta RN RN iw
[2020-02-28 14:36] VITALS: TEMP 98.2
[2020-02-28 14:38] VITALS: BP 149/81; O2SAT 98
== END 2020-02-28 14:28 | disposition home or self-care (01) ==
LOC: ER 10:13
DX: M62.838 Other muscle spasm (principal); I10 Essential (primary) hypertension
CPT/HCPCS: 85025; 80048; 36415; 99283; J3480; J7030; J2800

== ENCOUNTER 2020-05-05 14:49 | Emergency (ER) | payer OTHER ==
--- OUTSIDE RECORDS SUMMARY | 2020-05-05 15:03 | XMS REPORT | Continuity of Care Document ---
:1955 Author Organization [facility] t Address [address] [place] [address] Care Team Providers Name Role Phone Merari Sin Attending Clinician Problems This patient has no known problems. Allergies, Adverse Reactions, Alerts This patient has no known allergies or adverse reactions. Medications This patient has no known medications. Procedures This patient has no known procedures. Encounters Start End Encounter Admission Attending Care Care Encounter Source Date/Time Date/Time Type Type Clinicians Facility Department ID 2020-04-07 2020-04-07 [facility] [id number] 11:21:18 23:59:00 Encounter [facility] [id number] Surgical [id number] Specialti [id number] [address] 2020-04-07 2020-04-07 Office [facility] [id number] 11:00:38 11:15:38 Visit [facility] [id number] Surgical [id number] Specialti [id number] [address] [place] Results This patient has no known results.
--- OUTSIDE RECORDS SUMMARY | 2020-05-05 15:03 | XMS REPORT | Summary of Care ---
:1955 Author Organization [facility] Address [address] [place] [address] Care Team Providers Name Role Phone Windy Owens NP Primary Care Provider Reason for Visit Radiology Services (Routine) Status Reason Specialty Diagnoses / Referred By Referred To Procedures Contact Contact New Request Diagnostic Diagnoses Arthritis of left knee Cam Jones, Radiology Procedures XR KNEE <3 VW LEFT PAC [address] [place] [address] Encounter Details Date Type Department Care Team Description 04/07/2020 Hospital Encounter Critical access hospital Cam Jones , [facility] Orthopedics - PAC Radiology [address] [place] [id number] Allergies Active Allergy Reactions Severity Noted Date Comments Promethazine Hcl Other - See comments 10/09/2013 Uzair nting Azithromycin Diarrhea Medium 11/05/2013 Resulting in ED visit x 2 documented as of this encounter (statuses as of 04/08/2020) Medications Medication Sig Dispensed Refills Start Date End Date Status furosemide (LASIX) 20 mg Take 1 tablet by 30 tablet 11 10/18/19 19 Active tabletIndications: Fluid mouth every 24 retention (twenty-four) hours as needed (swelling). KCL 20 mEq Take 1 tablet by 30 tablet 11 10/18/2018 A ctive tabletIndications: Fluid mouth every 24 retention (twenty-four) hours as needed (swelling). acetaminophen-codeine TAKE 1 TABLET BY 90 tablet 0 10/18/2018 Active 300-30 mg MOUTH EVERY 8 tabletIndications: Leg HOURS NEEDED cramps FOR PAIN omeprazole 20 mg capsule Take 20 mg by 0 Active mouth daily. cyclobenzaprine 5 mg TAKE 1 TABLET BY 20 tablet 0 02/09/2019 Active tabletIndications: Leg MOUTH 3 TIMES A cramps DAY NEEDED FOR MUSCLE SPASM SERTraline 50 mg Take 1 tablet by 30 tablet 5 04/05/2019 Active tabletIndications: mouth daily. Depression with anxiety CARVEDILOL 6.25 mg TAKE 1 TABLET BY 60 tablet 0 07/22/2019 Active tabletIndications: MOUTH TWICE A Essential hypertension, DAY WITH MEALS benign naproxen sodium (ANAPROX Take 1 tablet by 30 tablet 0 10/22/19 20 Active DS) 550 mg mouth 2 (two) tabletIndications: Groin times daily with strain, left, initial meals. encounter methylPREDNISolone Take by mouth 21 Each 0 10/22/2019 Active (MEDROLLETICIA,) 4 mg SEE-INSTRUCTIONS tabletsIndications: . follow package Groin strain, left, directions initial encounter documented as of this encounter (statuses as of 04/08/2020) Active Problems Problem Noted Date Left shoulder pain 02/16/2019 Abnormal ECG 02/16/2019 Chest pain 02/08/2019 Hypokalemia 05/11/2017 Syncope 05/10/2017 Obese 10/11/2013 Essential hypertension, benign 10/11/2013 Urinary incontinence 10/11/2013 documented as of this encounter (statuses as of 04/08/2020) Immunizations Name Administration Dates Next Due Pneumococcal Polysaccharide, PPSV23 (PNEUMOVAX) 02/09/2019 Td 08/21/2004 documented as of this encounter Social History Tobacco Use Types Packs/Day Years Used Date Never Smoker Smokeless Tobacco: Never Used Alcohol Use Drinks/Week oz/Week Comments No Financial Resource Strain Answer Date Recorded How hard is it for you to pay for the very basics like Not v pb hard 02/08/2019 food, housing, medical care, and heating? Sex Assigned at Date Recorded Not on file COVID-19 Exposure Response Date Recorded In the last month, have you been in contact with No / Unsure 04/07/2020 11:01 AM CDT someone who was confirmed or suspected to have Coronavirus / COVID-19? documented as of this encounter Last Filed Vital Signs Not on filedocumented in this encounter Plan of Treatment Health Maintenance Due Date Last Done Comments HEPATITIS C (HCV) SCREEN 1955 DTaP,Tdap,and Td Vaccines (1 - 1972 08/21/2004 Tdap) COLON CANCER SCREENING ANNUAL 2003 FIT/FOBT COLON CANCER SCREENING FIT DNA 2003 EVERY 3 YEARS COLON CANCER SCREENING 2003 SIGMOIDOSCOPY EVERY 5 YEARS COLONOSCOPY 2003 Colorectal Cancer Screening 2003 Zoster Recombinant Vaccine 2003 (SHINGRIX) (1 of 2) Medicare Wellness Visit 2018 Osteoporosis Screening 2018 Breast Cancer Screening 11/21/2019 11/20/2018, 05/04/2017, (MAMMOGRAM) 02/04/2016, Additional history exists INFLUENZA VACCINE (#1) 2020 Depression Screening 04/07/2021 04/07/2020 PNEUMOCOCCAL VACCINES 65+ Completed 02/09/2019 documented as of this encounter Procedures Procedure Name Priority Date/Time Associated Diagnosis Comme nts XR KNEE <3 VW LEFT Routine 04/07/2020 11:21 AM Left knee pain, Results for this CDT unspecified procedure are i n chronicity the results section. documented in this encounter Results XR KNEE <3 VW LEFT (04/07/2020 11:21 AM CDT) Specimen Narrative Performed At This result has an attachment that is no t available. She has degenerative changes in the medial lateral compartments on the PACS joint line as well as in the patellofemoral joint with approximately 2 mm of joint space remaining Performing Organization Address City/State/Zipcode Phone Number PACS documented in this encounter Visit Diagnoses Diagnosis Left knee pain, unspecified chronicity documented in this encounter Insurance Payer Benefit Plan / Subscriber ID Effective Dates Phone Addre ss Type Group MEDICARE MEDICARE PART [id number] 2008-Terry [phone] Medicare A & B t 2 [id number] [place] [id number] documented as of this encounter
--- OUTSIDE RECORDS SUMMARY | 2020-05-05 15:03 | XMS REPORT | Summary of Care ---
:1955 Author Organization [facility] Address [address] [place] [address] Care Team Providers Name Role Phone Windy Owens NP Primary Care Provider Reason for Referral Radiology Services (Routine) Status Reason Specialty Diagnoses / Referred By Referred To Procedures Contact Contact New Request Diagnostic Diagnoses Arthritis of left knee Cam Jones, Radiology Procedures XR KNEE <3 VW LEFT PAC [address] [place] [address] Reason for Visit Reason Comments Knee Pain Left Encounter Details Date Type Department Care Team Description 04/07/2020 Office Visit [facility] Orthopaedic Cam Jones, A rthritis of left knee Surgery- [place] PAC (Primary Dx) [address], [address] [place] [address] [place] [address] [place], [place] [phone] Allergies Active Allergy Reactions Severity Noted Date Comments Promethazine Hcl Other - See comments 10/09/2013 Uzair nting Azithromycin Diarrhea Medium 11/05/2013 Resulting in ED visit x 2 documented as of this encounter (statuses as of 04/07/2020) Medications Medication Sig Dispensed Refills Start Date [...] by mouth 21 Each 0 10/22/2019 Active (MEDROL, LETICIA,) 4 mg SEE-INSTRUCTIONS tabletsIndications: . follow package Groin strain, left, directions initial encounter documented as of this encounter (statuses as of 04/07/2020) Active Problems Problem Noted Date Left shoulder pain 02/16/2019 Abnormal ECG 02/16/2019 Chest pain 02/08/2019 Hypokalemia 05/11/2017 Syncope 05/10/2017 Obese 10/11/2013 Essential hypertension, benign 10/11/2013 Urinary incontinence 10/11/2013 documented as of this encounter (statuses as of 04/07/2020) Immunizations Name Administration Dates Next Due Pneumococcal [...] of this encounter Last Filed Vital Signs Vital Sign Reading Time Taken Comments Blood Pressure 135/83 04/07/2020 11:05 AM CDT Pulse 112 04/07/2020 11:05 AM CDT Temperature - - Respiratory Rate - - Oxygen Saturation - - Inhaled Oxygen Concentration - - Weight 113.4 kg (250 lb) 04/07/2020 11:05 AM CDT Height 177.8 cm (5' 10") 04/07/2020 11:05 AM CDT Body Mass Index 35.87 04/07/2020 11:05 AM CDT documented in this encounter Progress Notes Cam Jones, PAC - 04/07/2020 11:15 AM CDT Cc: Chief Complaint Patient presents with Knee Pain Left Lateral release 2004 - knee is now buckling for the last three months. Pain increasing and causing her issues with her hips and back. Has swelling. She has tried elevation and Tylenol for the pain. Denies NSAID use although she has no kidney issues. No films. Brandi [place] 04/07/2020 11:10 AM Vandana Garcia is a 64 year old female. Here for left knee pain status post lateral release 2004 she's been experiencing buckling. Knee pain6/10 in intensity she has tried Tylenol. She has pain in the medial compartment of her left knee and it feels like something is not lined up there for her has experienced popping in her medial joint space. He has also experienced locking and giving way. Allergies Vandana is allergic to zithromax [azithromycin] and phenergan [promethazine hcl]. Medications Outpatient Medications Prior to Visit Medication Sig Dispense Refill methylPREDNISolone (MEDROL, LETICIA,) 4 mg tablets Take by mouth SEE- INSTRUCTIONS. follow package directions 21 Each 0 naproxen sodium (ANAPROX DS) 550 mg tablet Take 1 tablet by mouth 2 (two) times daily with meals. 30 tablet 0 CARVEDILOL 6.25 mg tablet TAKE 1 TABLET BY MOUTH TWICE A DAY WITH MEALS 60 tablet 0 SERTraline 50 mg tablet Take 1 tablet by mouth daily. 30 tablet 5 cyclobenzaprine 5 mg tablet TAKE 1 TABLET BY MOUTH 3 TIMES A DAY NEEDED FOR MUSCLE SPASM 20 tablet 0 omeprazole 20 mg capsule Take 20 mg by mouth daily. acetaminophen-codeine 300-30 mg tablet TAKE 1 TABLET BY MOUTH EVERY 8 HOURS NEEDED FOR PAIN 90 tablet 0 furosemide (LASIX) 20 mg tablet Take 1 tablet by mouth every 24 (twenty- four) hours as needed (swelling). 30 tablet 11 KCL 20 mEq tablet Take 1 tablet by mouth every 24 (twenty-four) hours as needed (swelling). 30 tablet 11 No facility-administered medications prior to visit. Histories Past Medical History: Diagnosis Date Abnormal uterine bleeding post menopausal bleeding Depression denies suicidal ideations Hypertension Urinary incontinence Past Surgical History: Procedure Laterality Date ARTHROSCOPIC LATERAL KNEE RELEASE 2004 BIOPSY/EXCIS CERVICAL LESN 11/13/2013 CHOLECYSTECTOMY 1986 ENDOMETRIAL BIOPSY 11/13/2013 Surgeon: Olesya Meeks MD; [facility]: [facility] ENDOMETRIAL POLYPECTOMY 11/13/2013 Surgeon: Olesya Meeks MD; Location: [facility] TONSILLECTOMY at age 24 TUBAL LIGATION 1978 Social History Socioeconomic History Marital status: Spouse name: Not on file Number of children: Not on file Years of education: Not on file Highest education level: Not on file Occupational History Not on file Social Needs Financial resource strain: Not very hard Food insecurity Worry: Patient refused Inability: Patient refused Transportation needs Medical: Patient refused Non-medical: Patient refused Tobacco Use Smoking status: Never Smoker Smokeless tobacco: Never Used Substance and Sexual Activity Alcohol use: No Drug use: No Sexual activity: Yes Partners: Male control/protection: Surgical, Post-menopausal Lifestyle Physical activity Days per week: Not on file Minutes per session: Not on file Stress: Not on file Relationships Social connections Talks on phone: Not on file Gets together: Not on file Attends methodist service: Not on file Active member of club or organization: Not on file Attends meetings of clubs or organizations: Not on file Relationship status: Not on file Intimate partner violence Fear of current or ex partner: Not on file Emotionally abused: Not on file Physically abused: Not on file Forced sexual activity: Not on file Other Topics Concern Not on file Social History Narrative Lives at by herself On disability Walks independently Family History Problem Relation Age of Onset Other - see comments Mother dementia Asthma Sister Cancer Sister kidney Arthritis NoFHx Breast Cancer NoFHx defects NoFHx Colon Cancer NoFHx Ovarian Cancer NoFHx Uterine Cancer NoFHx Depression NoFHx Diabetes NoFHx Genetic NoFHx Heart NoFHx High cholesterol NoFHx Hypertension NoFHx Mental retardation NoFHx Neurological NoFHx Osteoporosis NoFHx Psychiatry NoFHx Review of Systems Vital Signs BP 135/83 | Pulse 112 | Ht 70" (177.8 cm) | Wt 113.4 kg (250 lb) | LMP 09/21/2013 | BMI 35.87 kg/m Physical Exam Musculoskeletal: Comments: Physical Exam Constitutional: oriented to person, place, and time. appears well-developed and well-nourished. HENT: Head: Normocephalic and atraumatic. Right Ear: External ear normal. Left Ear: External ear normal. Eyes: Conjunctivae are normal. Neck: Normal range of motion. No strabismus Neck supple. Cardiovascular: Normal rate and regular rhythm. Pulmonary/Chest: Normal respiratory rate equal chest rise and fall in no apparent distress Abdominal: Abdomen nondistended nontender Neurological: alert and oriented to person, place, and time. No asymmetry Skin: Skin is warm and dry. Psychiatric: normal mood and affect. behavior is normal. Judgment and thought content normal. Nursing note and vitals reviewed. She has a positive Buster test for medial joint space pain with internal rotation and knee flexioninto valgus stress, he does have some varicosities over her knee. Table ligamentous exam for anterior posterior cruciate ligaments with anterior posterior drawer exam and varus valgus stress for medial lateral collateral ligaments She is point tender to palpation of the medial lateral patellar facet her kneecap is mobile and there is a palpable infrapatellar crepitus. Assessment/Plan 1. Arthritis of left knee XR KNEE <3 VW LEFT Osteoarthritis is first managed with [id number] medications such as Tylenol arthritis or anti-inflammatories without no longer working we can go to prescription strength anti-inflammatory medicationsNo medication is without risk anti-inflammatory's inhibit the buffy coat of the stomach which canlead to gastrointestinal bleeding. They can decrease the blood flow to the kidneys. If you're taking an anticoagulant to prevent cardiac disease they can inhibit that anticoagulants ability to protect you. Whether they are prescribed or [id number]. Cortisone injections take a day to take effect and have a duration of 1-2 months you cannot get morethan 3 cortisone injections in a year and may have to be at least 3 months apart If the cortisone injections work, I molecular hyaluronic acid injections are effective for 6 months of pain relief in 3 out of 4 people there administered one shot a week for 3 weeks Through a combination of these conservative methods we will try as long as possible not to do surgery. Eventually we may need to do a total knee replacement total knee replacements are effective in alleviating the pain of arthritis in the knee but there is a chance of needing revision and so we should wait as long as possible before doing that. No decision for surgery has been made. She has tried Tylenol but not arthritis strength she will try that first if she is not getting relief she can call and we will give her some anti-inflammatory. Patient was instructed in straight leg raise exercises. Instructed to lift heel off the ground 4 inches with leg straight. After setting the leg down completely relax her quadriceps, once her quadriceps is relaxed perform another repetition. Advised to do repetitions in sets of 10. Until they can do 8sets of 10 pain-free perform exercises 3 times a day. That's 240 straight leg raises per day. Once th e patient is able to do 240 straight leg raises pain-free start over with a 2 pound ankle weights. After 240 leg raises pain-free with a 2 pound ankle weight, progress to terminal knee extensions. Allow need to bend 30 degrees and then extending to straight with light weight on the ankle If her giving way doesn't resolve with her home exercise program she can call and I will give her prescription for physical therapy Considering that she will eventually need a total knee replacement but no decision for surgery has been made yet she is going to work on weight reduction this will also help her arthritis now I recommend that she decrease caloric intake and try to eat a more vegetable enhanced diet. She can do stationary exercise bike and swimming for exercise but she should avoid impact activities such as step aerobics and jogging. documented in this encounter Plan of Treatment Health [...] Completed 02/09/2019 documented as of this encounter Results XR KNEE <3 VW [...] documented in this encounter Visit Diagnoses Diagnosis Arthritis of left knee - Primary Unspecified arthropathy, lower leg documented in this encounter Insurance Payer Benefit Plan / Subscriber ID Effective Dates Phone Addre ss Type Group MEDICARE MEDICARE PART [id number] 2008-Terry [phone] Medicare A & B t 2 [id number] [place] [id number] documented as of this encounter
--- OUTSIDE RECORDS SUMMARY | 2020-05-05 15:03 | XMS REPORT | Summary of Care ---
:[address] [facility] Address [address] [place] [id number] Care Team Providers Name Role Phone Windy Owens NP Primary Care Provider Reason for Referral Radiology Services (Routine) Status Reason Specialty Diagnoses / Referred By Referred To Procedures Contact Contact New Request Diagnostic Diagnoses Arthritis of left knee Cam Jones, Radiology Procedures XR KNEE <3 VW LEFT PAC [address] [place] [address] Reason for Visit Reason Comments Knee Pain Left Encounter Details Date Type Department Care Team Description 04/07/2020 Office Visit [facility]opaedic Cam Jones, A rthritis of left knee Surgery- [place] [facility] (Primary Dx) [address], [address] [place] [address] [place] [address] [place], [place] [phone] Allergies Active Allergy Reactions Severity Noted [...] file Gets together: Not on file Attends bahai service: Not on file Active member of [...] VW LEFT Osteoarthritis is first managed with [id number] medications such as Tylenol arthritis or anti-inflammatories [...] protect you. Whether they are prescribed or mdnw-yzg-[id number]. Cortisone injections take a day to take [...] Addre ss Type Group MEDICARE MEDICARE PART [id number] 2008-Terry [phone] Medicare A & B t 2 [id number] [place] [id number] documented as of this encounter
[2020-05-05] MEDS ORDERED: NA CHLORIDE 0.9% 500 ML ONE (15:21)
[2020-05-05 15:37] LABS: Absolute Lymphocytes (CBC) 1.7 K/uL (0.7-4.9); Basophils % 1.3 % (0-1.3); Hematocrit 42.3 % (36.0-45.0); Lymphocytes % 22.9 % (15.3-44.8); MPV 9.1 fL (7.6-11.3); RBC Red Blood Cell Count 4.78 M/uL (3.86-4.86)
[2020-05-05 15:52] LABS: ALT/SGPT 48 U/L (12-78); AST/SGOT 20 U/L (15-37); Albumin 3.7 g/dL (3.4-5.0); Alkaline Phosphatase 96 U/L (45-117); BUN Blood Urea Nitrogen 17 mg/dL (7-18); Bicarbonate 28 mmol/L (21-32); Bilirubin Direct 0.1 mg/dL (0-0.2); Bilirubin Total 0.5 mg/dL (0.2-1.0); CKMB Creatine Kinase MB 1.5 ng/mL (0.3-3.6); Creatine Phosphokinase 76 U/L (26-192); Glucose Level 93 mg/dL (74-106); Magnesium 2.3 mg/dL (1.8-2.4); NT PRO-BNP 254 pg/mL (<125); Potassium 4.3 mmol/L (3.5-5.1); Protein, Total 7.5 g/dL (6.4-8.2); Sodium Level 144 mmol/L (136-145); Troponin (Emerg Dept Use Only) < 0.02 ng/mL (0.0-0.045)
--- NOTE | 2020-05-05 16:07 | RAD REPORT ---
EXAM DESCRIPTION: RAD - Chest Single View - 05/05/2020 3:31 pm CLINICAL HISTORY: COUGH, chest pain COMPARISON: Portable November 2014 TECHNIQUE: AP portable chest image was obtained 05/05/2020 3:31 pm . FINDINGS: Lung volumes are low. Lung herzog are clear. Heart and vasculature are normal. No measurab le pleural effusion and no pneumothorax. No acute bony abnormality seen. No acute aortic findings jeniffer pected. IMPRESSION: Low lung volume examination without acute cardiopulmonary finding.
[2020-05-05] MEDS ORDERED: NA CHLORIDE 0.9% 1,000 ML ONE (16:59)
--- NOTE | 2020-05-05 17:16 | RAD REPORT ---
EXAM DESCRIPTION: CT - Angio Aorta For Dissection - 05/05/2020 4:52 pm CLINICAL HISTORY: DISSECTION, chest pain, abdominal pain COMPARISON: Portable chest May 05; CT chest PE study November 2014 TECHNIQUE: Dynamically enhanced 3 mm thick images of the chest, abdomen, and upper pelvis were obtai shae during administration of approximately 150mL Isovue 370 IV contrast. Sagittal and coronal reconst ruction images were generated using MIP and reviewed. Exam utilizes a protocol to evaluate entire cou rse of the aorta. All CT scans are performed using dose optimization technique as appropriate and may include automated exposure control or mA/KV adjustment according to patient size. FINDINGS: Aorta is normal in diameter with no dissection or other acute aortic findings. Reconstruct ion images show no significant findings. No pulmonary artery abnormality. No cardiomegaly, pericardial thickening or pericardial effusion. No mass or infiltrate in the lung parenchyma. No pleural thickening, pleural effusion or pneumothorax . No abnormal mediastinal or hilar mass or lymphadenopathy seen. No chest wall mass or abnormal axillar y lymphadenopathy. Celiac, SMA and renal arteries show no suspicious findings. Borderline to mild fatty infiltration pat tern seen in the liver. No focal liver lesions seen. Spleen and pancreas are unremarkable. Prompt, sy mmetric renal function is present. Both kidneys have areas of cortical thinning that may reflect prio r ischemic or infectious insult. Numerous moderately sized parapelvic cysts are present. Hydronephros is is doubtful. No dilatation of either ureter. No urinary bladder abnormality. Uterus and ovaries sh ow no suspicious findings. No acute GI finding identified. Patient has a small hiatal hernia. There is a small fat only umbilica l hernia present as well. No mass or abnormal lymphadenopathy. No free air, free fluid or inflammato ry stranding. No compression fracture or acute vertebral body finding. Patient has lower lumbar facet joint degener ative change. 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 Mild SI joint degenerative changes present. IMPRESSION: Negative CT scan of the aorta. No acute or significant CT chest finding. Multiple moderately large parapelvic cysts seen in each kidney. Hydronephrosis is not suspected. Live r shows some mild fatty infiltration. Additional nonacute findings are detailed in the body of the report.
--- NOTE | 2020-05-05 18:06 | RAD REPORT ---
EXAM DESCRIPTION: US - Extrem Venous W Compress Agus - 05/05/2020 5:48 pm CLINICAL HISTORY: PAIN COMPARISON: None. TECHNIQUE: Real-time sonographic evaluation of the bilateral lower extremity common femoral, superfi cial femoral, popliteal and posterior tibial veins was performed. FINDINGS: Normal compressibility, flow augmentation, phasic flow and spontaneous flow are identified in the left and right lower extremity common femoral, superficial femoral, popliteal and posterior t ibial veins. No intraluminal filling defects seen. A left popliteal fossa 3 x 2 cm cyst is identified. No cyst rupture or hemorrhage findings. IMPRESSION: No DVT in either lower extremity. Left popliteal fossa 3 x 2 cm cyst.
--- NOTE | 2020-05-05 18:15 | EDPHYS ---
Physician Documentation [facility] Name: Vandana Garcia Age: 64 yrs Sex: Female : 1955 Arrival Date: 05/05/2020 Time: 14:54 Bed 8 Private MD: ED Physician Bill Zhang HPI: 05/05 16:18 This 64 yrs old Female presents to ER via Ambulatory with complaints of chris Muscle Cramps. 16:18 The patient presents with decreased range of motion, pain. The complaints affect the chris pelvis, right leg and left leg. Context: The problem was sustained at an unknown site. Onset: The symptoms/episode began/occurred 2 month(s) ago. Modifying factors: The symptoms are alleviated by nothing. the symptoms are aggravated by nothing. Associated signs and symptoms: The patient has no apparent associated signs or symptoms. cramping in legs, unknown cause. Treatment prior to arrival includes: no previous treatment. Severity of symptoms: At their worst the symptoms were mild moderate in the emergency department the symptoms are unchanged. Historical: - Allergies: 15:00 Phenergan; ll1 15:00 Zithromax; ll1 - Home Meds: 15:05 methocarbamol 500 mg Oral tab 2 tabs 4 times per day [Active]; sertraline 50 mg oral rb1 tab 1 tab once daily [Active]; losartan 25 mg oral tab 1 tab once daily [Active]; omeprazole 40 mg Oral cpDR 1 cap once daily [Active]; - PMHx: 15:00 Depression; Hypertension; muscle spams; ll1 - PSHx: 15:00 Cholecystectomy; left knee; Tonsillectomy; ll1 - Immunization history:: Flu vaccine is not up to date. - Social history:: Smoking status: Patient denies any tobacco usage or history of. Patient/guardian denies using alcohol, street drugs. - Family history:: not pertinent. ROS: 16:18 Constitutional: Negative for fever, chills, and weight loss, Eyes: Negative for injury, chris pain, redness, and discharge, ENT: Negative for injury, pain, and discharge, Neck: Negative for injury, pain, and swelling, Cardiovascular: Negative for chest pain, palpitations, and edema, Respiratory: Negative for shortness of breath, cough, wheezing, and pleuritic chest pain, Abdomen/GI: Negative for abdominal pain, nausea, vomiting, diarrhea, and constipation, Back: Negative for injury and pain, : Negative for injury, bleeding, discharge, and swelling, Skin: Negative for injury, rash, and discoloration, Neuro: Negative for headache, weakness, numbness, tingling, and seizure, Psych: Negative for depression, anxiety, suicide ideation, homicidal ideation, and hallucinations, Allergy/Immunology: Negative for hives, rash, and allergies, Endocrine: Negative for neck swelling, polydipsia, polyuria, polyphagia, and marked weight changes. 16:18 MS/extremity: Positive for decreased range of motion, of the right leg and left leg. Exam: 16:18 Constitutional: This is a well developed, well nourished patient who is awake, alert, chris and in no acute distress. Head/Face: Normocephalic, atraumatic. Eyes: Pupils equal round and reactive to light, extra-ocular motions intact. Lids and lashes normal. Conjunctiva and sclera are non-icteric and not injected. Cornea within normal limits. Periorbital areas with no swelling, redness, or edema. ENT: Nares patent. No nasal discharge, no septal abnormalities noted. Tympanic membranes are normal and external auditory canals are clear. Oropharynx with no redness, swelling, or masses, exudates, or evidence of obstruction, uvula midline. Mucous membranes moist. Neck: Trachea midline, no thyromegaly or masses palpated, and no cervical lymphadenopathy. Supple, full range of motion without nuchal rigidity, or vertebral point tenderness. No Meningismus. Chest/axilla: Normal chest wall appearance and motion. Nontender with no deformity. No lesions are appreciated. Cardiovascular: Regular rate and rhythm with a normal S1 and S2. No gallops, murmurs, or rubs. Normal PMI, no JVD. No pulse deficits. Respiratory: Lungs have equal breath sounds bilaterally, clear to auscultation and percussion. No rales, rhonchi or wheezes noted. No increased work of breathing, no retractions or nasal flaring. Abdomen/GI: Soft, non-tender, with normal bowel sounds. No distension or tympany. No guarding or rebound. No evidence of tenderness throughout. Back: No spinal tenderness. No costovertebral tenderness. Full range of motion. Skin: Warm, dry with normal turgor. Normal color with no rashes, no lesions, and no evidence of cellulitis. MS/ Extremity: Pulses equal, no cyanosis. Neurovascular intact. Full, normal range of motion. Neuro: Awake and alert, GCS 15, oriented to person, place, time, and situation. Cranial nerves II-XII grossly intact. Motor strength 5/5 in all extremities. Sensory grossly intact. Cerebellar exam normal. Normal gait. Psych: Awake, alert, with orientation to person, place and time. Behavior, mood, and affect are within normal limits. 16:18 Musculoskeletal/extremity: ROM: intact in all extremities, full active range of motion, full passive range of motion, Pulses: noted to be 4+ in the bilateral radial, brachial, femoral, popliteal, posterior tibial and and dorsalis pedis arteries., Sensation intact. Compartment Syndrome exam of affected extremity: is normal. no numbness, no tingling, no sensation deficit, no palor, no weak pulses, Joints: All joints appear normal with full range of motion. All joints are normal except 16:18 Neuro: Orientation: is normal, appropriate for stated age, no acute changes, Mentation: is normal, appropriate for stated age, no acute changes, Memory: is normal, appropriate for stated age, no acute changes, Cranial nerves: grossly normal, is grossly normal based on the patient's age, no acute changes, Cerebellar function: is grossly normal, is grossly normal based on the patient's age, Motor: is normal, Sensation: is normal, no obvious gross deficits, appropriate no acute changes. 16:18 Psych: Behavior/mood is pleasant, cooperative, Affect is calm, Oriented to person, Patient has no thoughts/intents to harm self or others. Judgement / Insight is normal. Memory is normal. 16:29 ECG was reviewed by the Attending Physician. chris Vital Signs: 14:57 BP 139 / 97; Pulse 84; Resp 19; Temp 98.0; Pulse Ox 99% ; Weight 113.4 kg; Height 5 ft. ll1 7 in. (170.18 cm); Pain 6/10; 15:44 BP 121 / 75; Pulse 64; Resp 17; Pulse Ox 100% on R/A; tw2 16:35 BP 135 / 89; Pulse 69; Resp 17; Pulse Ox 100% on R/A; tw2 17:26 BP 130 / 82; Pulse 61; Resp 20; Pulse Ox 100% ; rb1 18:20 BP 117 / 81; Pulse 63; Resp 17; Pulse Ox 98% on R/A; tw2 14:57 Body Mass Index 39.16 (113.40 kg, 170.18 cm) ll1 MDM: 15:05 Patient medically screened. [facility] 16:28 Differential diagnosis: tendonitis. Data reviewed: vital signs, nurses notes, lab test chris result(s), EKG, radiologic studies, CT scan, plain films. Data interpreted: air sampling and monitoring: rate is 64 beats/min, rhythm is regular, Pulse oximetry: on room air is 100 %. Test interpretation: by ED physician or midlevel provider: ECG, plain radiologic studies. Counseling: I had a detailed discussion with the patient and/or guardian regarding: the historical points, exam findings, and any diagnostic results supporting the discharge/admit diagnosis, lab results, radiology results, the need for outpatient follow up, for definitive care, a software tools developer. 17:51 ED course: all test results discussed with patient, will have patient follow up pcp, dr chris cruz. 05/05 15:07 Order name: NT PRO-BNP; Complete Time: 16:10 [facility] 05/05 15:07 Order name: Basic Metabolic Panel; Complete Time: 16:10 [facility] 05/05 15:07 Order name: CBC with Diff; Complete Time: 16:10 [facility] 05/05 15:07 Order name: LFT's; Complete Time: 16:10 [facility] 05/05 15:07 Order name: Magnesium; Complete Time: 16:10 [facility] 05/05 15:07 Order name: Troponin (emerg Dept Use Only); Complete Time: 16:10 [facility] 05/05 15:07 Order name: XRAY Chest (1 view); Complete Time: 16:10 [facility] 05/05 15:07 Order name: EKG; Complete Time: 15:07 [facility] 05/05 15:07 Order name: CK; Complete Time: 16:10 [facility] 05/05 15:07 Order name: Ckmb; Complete Time: 16:10 [facility] 05/05 16:10 Order name: US Extremity Venous W Compression Agus [facility] 05/05 16:31 Order name: CT Aorta for Dissection; Complete Time: 17:49 [facility] 05/05 15:07 Order name: Cardiac monitoring; Complete Time: 15:24 [facility] 05/05 15:07 Order name: EKG - Nurse/Tech; Complete Time: 15:33 [facility] 05/05 15:07 Order name: IV Saline Lock; Complete Time: 15:24 [facility] 05/05 15:07 Order name: Labs collected and sent; Complete Time: 15:24 [facility] 05/05 15:07 Order name: O2 Per Protocol; Complete Time: 15:08 [facility] 05/05 15:07 Order name: O2 Sat Monitoring; Complete Time: 15: [facility] 05/05 15:07 Order name: Urine Dipstick-Ancillary (obtain specimen); Complete Time: 18:12 [facility] EC:29 Rate is 64 beats/min. Rhythm is regular. AK interval is normal. QRS interval is normal. chris QT interval is normal. No Q waves. T waves are Normal. No ST changes noted. Clinical impression: NSR w/ Non-specific ST/T Changes and No evidence of ischemia. Interpreted by me. Reviewed by me. Administered Medications: 15:22 Drug: NS 0.9% 500 ml Route: IV; Rate: bolus; Site: right antecubital; tw2 16:30 Follow up: Response: No adverse reaction; IV Intake: 500ml tw2 16:30 Follow up: Response: No adverse reaction; IV Status: Completed infusion tw2 17:00 Drug: NS 0.9% 1000 ml Route: IV; Rate: 125 ml/hr; Site: right antecubital; tw2 18:23 Follow up: Response: No adverse reaction; IV Status: Order to discontinue infusion tw2 Disposition: 05/05/20 18:14 Discharged to Home. Impression: Cramp and spasm, Low back pain. - Condition is Stable. - Discharge Instructions: Back Pain, Adult, Leg Cramps, Muscle Cramps and Spasms, Musculoskeletal Pain, Back Pain, Adult, [id number], Aspirin and Your Heart. - Prescriptions for Valium 5 mg Oral Tablet - take 1 tablet by ORAL route At bedtime As needed; 10 tablet. Robaxin 500 mg Oral Tablet - take 2 tablets by ORAL route every 8 hours As needed; 30 tablet. - Medication Reconciliation Form, Thank You Letter, Antibiotic Education, Prescription Opioid Use form. - Follow up: Private Physician; When: 2 - 3 days; Reason: Recheck today's complaints, Continuance of care, Re-evaluation by your physician. Follow up: Quan Cruz MD; When: 5 - 6 days; Reason: Recheck today's complaints, Re-evaluation by your physician. - Problem is new. - Symptoms have improved. Signatures: Dispatcher [employer] Bill Barger MD MD cha Barber, Rebecca, RN RN rb1 Jewels Mcmahon RN RN tw2 Naima Stone RN RN ll1 Corrections: (The following items were deleted from the chart) 18:14 18:14 05/05/2020 18:14 Discharged to Home. Impression: Cramp and spasm; Low back pain. chris Condition is Stable. Discharge Instructions: Back Pain, Adult, Leg Cramps, Muscle Cramps and Spasms, Musculoskeletal Pain, Back Pain, Adult, [id number], Aspirin and Your Heart. Prescriptions for Valium 5 mg Oral Tablet - take 1 tablet by ORAL route every 8 hours As needed; 20 tablet. and Forms are Medication Reconciliation Form, Thank You Letter, Antibiotic Education, Prescription Opioid Use. Follow up: Private Physician; When: 2 - 3 days; Reason: Recheck today's complaints, Continuance of care, Re-evaluation by your physician. Problem is new. Symptoms have improved. [facility] 18:24 18:14 05/05/2020 18:14 Discharged to Home. Impression: Cramp and spasm; Low back pain. tw2 Condition is Stable. Discharge Instructions: Back Pain, Adult, Leg Cramps, Muscle Cramps and Spasms, Musculoskeletal Pain, Back Pain, Adult, [id number], Aspirin and Your Heart. Prescriptions for Valium 5 mg Oral Tablet - take 1 tablet by ORAL route every 8 hours As needed; 20 tablet. and Forms are Medication Reconciliation Form, Thank You Letter, Antibiotic Education, Prescription Opioid Use. Follow up: Private Physician; When: 2 - 3 days; Reason: Recheck today's complaints, Continuance of care, Re-evaluation by your physician. Follow up: Quan Cruz; When: 5 - 6 days; Reason: Recheck today's complaints, Re-evaluation by your physician. Problem is new. Symptoms have improved. chris
--- NOTE | 2020-05-05 18:15 | ER ---
Nurse's Notes [facility] Name: Vandana Garcia Age: 64 yrs Sex: Female : 1955 Arrival Date: 05/05/2020 Time: 14:54 Bed 8 Private MD: Diagnosis: Cramp and spasm;Low back pain Presentation: 05/05 14:57 Chief complaint: Patient states: Bilateral leg/thigh/groin "muscle cramps" for over 2 ll1 months. Left shoulder cramping also. Was referred to [facility], he wants ultrasound of extremities. This test is not scheduled until May.21. Coronavirus screen: Client denies travel out of the [place] in the last 14 days. At this time, the client does not indicate any symptoms associated with coronavirus-19. Ebola Screen: Patient denies travel to an Ebola-affected area in the 21 days before illness onset. Initial Sepsis Screen: Does the patient meet any 2 criteria? No. Patient's initial sepsis screen is negative. Risk Assessment: Do you want to hurt yourself or someone else? Patient reports no desire to harm self or others. Onset of symptoms was March 03, 2020. 14:57 Method Of Arrival: Ambulatory ll1 14:57 Acuity: FEDE 3 ll1 15:05 Initial Sepsis Screen: Does the patient have a suspected source of infection? No. rb1 Patient's initial sepsis screen is negative. Historical: - Allergies: 15:00 Phenergan; ll1 15:00 Zithromax; ll1 - Home Meds: 15:05 methocarbamol 500 mg Oral tab 2 tabs 4 times per day [Active]; sertraline 50 mg oral rb1 tab 1 tab once daily [Active]; losartan 25 mg oral tab 1 tab once daily [Active]; omeprazole 40 mg Oral cpDR 1 cap once daily [Active]; - PMHx: 15:00 Depression; Hypertension; muscle spams; ll1 - PSHx: 15:00 Cholecystectomy; left knee; Tonsillectomy; ll1 - Immunization history:: Flu vaccine is not up to date. - Social history:: Smoking status: Patient denies any tobacco usage or history of. Patient/guardian denies using alcohol, street drugs. - Family history:: not pertinent. Screenin:05 Abuse screen: Denies threats or abuse. Nutritional screening: No deficits noted. rb1 Tuberculosis screening: No symptoms or risk factors identified. Fall Risk None identified. Assessment: 15:05 General: Appears uncomfortable, Behavior is calm, cooperative. rb1 15:05 Pain: Complains of pain in right leg and left leg Pain currently is 6 out of 10 on a rb1 pain scale. Quality of pain is described as crampy, Pain began about two months. Neuro: Level of Consciousness is awake, alert, obeys commands, Oriented to person, place, time, situation. Cardiovascular: Capillary refill < 3 seconds. Respiratory: Airway is patent Respiratory effort is even, unlabored, Respiratory pattern is regular, symmetrical. GI: Reports nausea. : No signs and/or symptoms were reported regarding the genitourinary system. Derm: Skin is pink, warm \\T\\ dry. Musculoskeletal: Range of motion: intact in all extremities. 15:44 Reassessment: Patient appears in no apparent distress at this time. No changes from tw2 previously documented assessment. Patient and/or family updated on plan of care and expected duration. Pain level reassessed. Patient is alert, oriented x 3, equal unlabored respirations, skin warm/dry/pink. 16:04 Reassessment: provider at bedside at this time. tw2 16:35 Reassessment: Patient appears in no apparent distress at this time. No changes from tw2 previously documented assessment. Patient and/or family updated on plan of care and expected duration. Pain level reassessed. Patient is alert, oriented x 3, equal unlabored respirations, skin warm/dry/pink. 17:30 Reassessment: Patient appears in no apparent distress at this time. No changes from rb1 previously documented assessment. 18:05 Reassessment: Patient appears in no apparent distress at this time. No changes from tw2 previously documented assessment. Patient and/or family updated on plan of care and expected duration. Pain level reassessed. Patient is alert, oriented x 3, equal unlabored respirations, skin warm/dry/pink. pt taken to restroom at this time for urine sample. 18:13 Reassessment: provider at bedside at this time going over results. tw2 18:22 Reassessment: Patient appears in no apparent distress at this time. No changes from tw2 previously documented assessment. Patient and/or family updated on plan of care and expected duration. Pain level reassessed. Vital Signs: 14:57 BP 139 / 97; Pulse 84; Resp 19; Temp 98.0; Pulse Ox 99% ; Weight 113.4 kg; Height 5 ft. ll1 7 in. (170.18 cm); Pain 6/10; 15:44 BP 121 / 75; Pulse 64; Resp 17; Pulse Ox 100% on R/A; tw2 16:35 BP 135 / 89; Pulse 69; Resp 17; Pulse Ox 100% on R/A; tw2 17:26 BP 130 / 82; Pulse 61; Resp 20; Pulse Ox 100% ; rb1 18:20 BP 117 / 81; Pulse 63; Resp 17; Pulse Ox 98% on R/A; tw2 14:57 Body Mass Index 39.16 (113.40 kg, 170.18 cm) ll1 ED Course: 14:54 Patient arrived in ED. ds1 15:00 Triage completed. ll1 15:01 Arm band placed on Patient placed in an exam room, on a stretcher. ll1 15:02 Ayaka Dodson, RN is Primary Nurse. rb1 15:05 Bill Zhang MD is Attending Physician. chris 15:05 Patient has correct armband on for positive identification. Bed in low position. Call rb1 light in reach. Side rails up X 1. Pulse ox on. NIBP on. 15:20 Inserted saline lock: 20 gauge in right antecubital area, using aseptic technique. tw2 Blood collected. 15:31 XRAY Chest (1 view) In Process Unspecified. EDMS 15:38 Warm blanket given. em1 15:38 EKG done, by ED staff, reviewed by Bill Zhang MD. em1 16:53 CT Aorta for Dissection In Process Unspecified. EDMS 17:48 US Extremity Venous W Compression Agus In Process Unspecified. EDMS 18:14 Quan Cruz MD is Referral Physician. chris 18:24 No provider procedures requiring assistance completed. IV discontinued, intact, tw2 bleeding controlled, No redness/swelling at site. Pressure dressing applied. Administered Medications: 15:22 Drug: NS 0.9% 500 ml Route: IV; Rate: bolus; Site: right antecubital; tw2 16:30 Follow up: Response: No adverse reaction; IV Intake: 500ml tw2 16:30 Follow up: Response: No adverse reaction; IV Status: Completed infusion tw2 17:00 Drug: NS 0.9% 1000 ml Route: IV; Rate: 125 ml/hr; Site: right antecubital; tw2 18:23 Follow up: Response: No adverse reaction; IV Status: Order to discontinue infusion tw2 Intake: 16:30 IV: 500ml; Total: 500ml. tw2 Outcome: 18:14 Discharge ordered by MD. perez 18:24 Discharged to home via wheelchair. tw2 18:24 Condition: stable 18:24 Discharge instructions given to patient, Instructed on discharge instructions, follow up and referral plans. no drinking with medication, no driving heavy equipment, medication usage, Demonstrated understanding of instructions, follow-up care, medications, Prescriptions given X 2. 18:24 Patient left the ED. tw2 Signatures: Dispatcher [employer] EDBill Castro MD MD cha Sanford, Sindy ds1 Clarke Logan em1 Ayaka Dodson, RN RN rb1 Jewels Mcmahon RN RN tw2 Naima Stone RN RN ll1 Corrections: (The following items were deleted from the chart) 18:23 18:05 BP 117 / 81; Pulse 63bpm; Resp 17bpm; Pulse Ox 98% RA; tw2 tw2
[2020-05-05 18:36] VITALS: TEMP 98
[2020-05-05 18:41] VITALS: BP 117/81; O2SAT 98
--- NOTE | 2020-05-06 05:51 | EKG ---
Test Date: 2020-05-05 Test Time: 15:31:44 Chamber Worker: EVARISTO MEASUREMENT RESULTS: Intervals: Rate: 64 MI: 160 QRSD: 92 QT: 434 QTc: 447 [place]: P: 43 MI: 160 QRS: -4 T: 32 INTERPRETIVE STATEMENTS: Normal sinus rhythm Moderate voltage criteria for LVH, may be normal variant Borderline ECG Compared to ECG 12/13/2014 06:04:13 Left ventricular hypertrophy now present Sinus bradycardia no longer present T-wave abnormality no longer present Electronically Signed On 05-06-20 05:50:06 CDT by Quan Cruz
== END 2020-05-05 18:24 | disposition home or self-care (01) ==
LOC: ER 14:49
DX: M54.5 Low back pain (principal); I10 Essential (primary) hypertension; F32.9 Major depressive disorder, single episode, unspecified; Z88.1 Allergy status to other antibiotic agents; Z88.8 Allergy status to other drugs, medicaments and biological substances
CPT/HCPCS: 93005; 85025; 80048; 36415; 83735; 82550; 80076; 84484; 82553; 83880; 71275; 74175; 71045; 93970; Q9967; J7040; J7030; 96360; 96361; 99284

== ENCOUNTER 2020-06-18 07:32 | Emergency (ER) | payer OTHER ==
--- OUTSIDE RECORDS SUMMARY | 2020-06-18 07:34 | XMS REPORT | Continuity of Care Document ---
:1955 Author Organization [facility] t Address [address] [place] [address] Care Team Providers Name Role Phone Shelburn Raul CONTE Attending Clinician Merari Sin Attending Clinician Doctor Unassigned, Name Attending Clinician Unavailable Problems This patient has no known problems. Allergies, Adverse Reactions, Alerts This patient has no known allergies or adverse reactions. Medications This patient has no known medications. Procedures This patient has no known procedures. Encounters Start End Encounter Admission Attending Care Care Encounter Source Date/Time Date/Time Type Type Clinicians Facility Department ID 2020-05-14 2020-05-14 Telephone PranavMARIA ISABEL [id number] 00:00:00 00:00:00 [facility] [id number] [facility] [id number] 134 2020-04-07 2020-04-07 [facility] [id number] 11:21:18 23:59:00 Encounter [facility] [id number] [facility] [id number] [facility] [id number] es [address] [place] 2020-04-07 2020-04-07 Office [facility] [id number] 11:00:38 11:15:38 Visit [facility] [id number] [facility] [id number] [facility] [id number] es 198 [place] 2014-06-02 2014-06-02 Patient Doctor AYLEEN [id number] 00:00:00 00:00:00 Secure Msg Unassigned, EL[facility] [id number] [facility] [id number] Results This patient has no known results.
--- OUTSIDE RECORDS SUMMARY | 2020-06-18 07:36 | XMS REPORT | Summary of Care ---
:1955 Author Organization [facility] - Health Address [address] [place] [id number] Care Team Providers Name Role Phone Doctor Unassigned, Name Primary Care Provider Unavailable Unknown Primary Care Provider Unavailable Pcp, Does Not Have A Primary Care Provider Nafisa Lofton RNinsurance sales supervisor Raul Rock DNP Primary Care Provider Windy Owens SHIP LOADER Primary Care Provider Encounter Details Date Type Department Care Team Description 06/02/2014 Patient Secure Msg [facility] MyChart Message s Doctor Unassigned, [address] [facility] [place] [address] [phone] [place] [address] [place] [address] Allergies Active Allergy Reactions Severity Noted Date Comments Promethazine Hcl Other - See comments 10/09/2013 Uzair nting Azithromycin Diarrhea Medium 11/05/2013 Resulting in ED visit x 2 documented as of this encounter (statuses as of 05/14/2020) Medications No known medicationsdocumented as of this encounter (statuses as of 05/14/2020) Active Problems Problem Noted Date Left shoulder pain 02/16/2019 Abnormal ECG 02/16/2019 Chest pain 02/08/2019 Hypokalemia 05/11/2017 Syncope 05/10/2017 Obese 10/11/2013 Essential hypertension, benign 10/11/2013 Urinary incontinence 10/11/2013 documented as of this encounter (statuses as of 05/14/2020) Immunizations Name Administration Dates Next Due Td 08/21/2004 documented as of this encounter Social History Tobacco Use Types Packs/Day Years Used Date Never Smoker Smokeless Tobacco: Never Used Alcohol Use Drinks/Week oz/Week Comments No Sex Assigned at Date Recorded Not on [...] 02/09/2019 documented as of this encounter Results Not on filedocumented in this encounter Insurance Payer Benefit Plan / Subscriber ID Effective Dates Phone Addre ss Type Group MEDICARE MEDICARE PART [id number] 2008-Terry [phone] [address] [address] Medicare A & B t 2 [id number] [place] [id number] documented as of this encounter
--- OUTSIDE RECORDS SUMMARY | 2020-06-18 07:36 | XMS REPORT | Summary of Care ---
:1955 Author Organization [facility] Address [address] [place] [id number] Care Team Providers Name Role Phone Windy Owens NP Primary Care Provider Reason for Referral Radiology Services (Routine) Status Reason Specialty Diagnoses / Referred By Referred To Procedures Contact Contact New Request Diagnostic Diagnoses Encounter for screening mammogram for malignant neoplasm of breast Breast cancer screening Pranav, Radiology Procedures BI SCREENING TOMOSYNTHESIS BILATERAL Emma R, DNP [address] [place] [address] Reason for Visit Reason Comments Orders Annual mammogram Encounter Details Date Type Department Care Team Description 05/14/2020 Telephone [facility] [place] Orders (Annual GROUP R, DNP mammogram) [address] [facility], [address] [place] [address] [address] [place] [phone] Allergies Active Allergy Reactions Severity Noted Date Comments Promethazine Hcl Other - See comments 10/09/2013 Uzair nting Azithromycin Diarrhea Medium 11/05/2013 Resulting in ED visit x 2 documented as of this encounter (statuses as of 05/14/2020) Medications Medication Sig Dispensed Refills Start Date [...] 05/14/2020) Immunizations Name Administration Dates Next Due Pneumococcal [...] Assigned at Date Recorded Not on file documented as of this encounter Last Filed Vital Signs Not on filedocumented in this encounter Miscellaneous Notes Telephone Encounter - Kasia Fisher - 05/14/2020 11:05 AM CDTRequesting orders for patient 12-month follow-up on her BILATERAL breast. Please place order for: SCREENING MAMMOGRAM-BILATERAL If patient is planning on returning to [facility] please place order for mammogram. Once orders are placed, we will call and schedule patient Thank you documented in this encounter Plan of Treatment Name Type Priority Associated Diagnoses Order S chedule BI SCREENING TOMOSYNTHESIS IMAGING Routine Encounter for Expected: BILATERAL screening mammogram 05/14/20 20, Expires: for malignant neoplasm 07/14 of breast Breast cancer screening Health Maintenance Due Date Last Done Comments [...] Results Not on filedocumented in this encounter Visit Diagnoses Diagnosis Breast cancer screening - Primary Breast screening, unspecified Encounter for screening mammogram for ma lignant neoplasm of breast Other screening mammogram documented in this encounter Insurance Payer Benefit Plan / Subscriber ID Effective Dates Phone Addre ss Type Group MEDICARE MEDICARE PART [id number] 2008-Terry [phone] [address] Medicare A & B t 2 [id number] [place] [phone] documented as of this encounter
[2020-06-18] MEDS ORDERED: KETOROLAC 30 MG/ML INJ ONE (08:21)
[2020-06-18] MEDS ORDERED: CYCLOBENZAPRINE 10 MG TAB ONE (08:21)
[2020-06-18 08:35] LABS: Basophils % 0.7 % (0-1.3); Hematocrit 39.6 % (36.0-45.0); Lymphocytes % 9.9 % (15.3-44.8); MPV 9.4 fL (7.6-11.3); RBC Red Blood Cell Count 4.45 M/uL (3.86-4.86)
[2020-06-18 08:39] LABS: Albumin 3.4 g/dL (3.4-5.0); Bilirubin Total 0.4 mg/dL (0.2-1.0); Potassium 3.9 mmol/L (3.5-5.1)
--- NOTE | 2020-06-18 09:39 | ER ---
Nurse's Notes [facility] Name: Vandana Garcia Age: 65 yrs Sex: Female : 1955 Arrival Date: 06/18/2020 Time: 07:34 Bed 5 Private MD: Diagnosis: Right hand forearm staffness/tingling;Radiculopathy;Radiculopathy, cervical region Presentation: 06/18 07:46 Chief complaint: Right hand pain x 2 days. Denies injury. Pt stated "I think I have hb fibromyalgia, because my legs hurt like this all the time.". Coronavirus screen: At this time, the client does not indicate any symptoms associated with coronavirus-19. Ebola Screen: No symptoms or risks identified at this time. Initial Sepsis Screen: Does the patient meet any 2 criteria? No. Patient's initial sepsis screen is negative. Does the patient have a suspected source of infection? No. Patient's initial sepsis screen is negative. Risk Assessment: Do you want to hurt yourself or someone else? Patient reports no desire to harm self or others. Onset of symptoms was June 17, 2020. 07:46 Method Of Arrival: Ambulatory hb 07:46 Acuity: FEDE 4 hb 08:04 Acuity: FEDE 3 hb Historical: - Allergies: 07:52 Phenergan; hb 07:52 Zithromax; hb - Home Meds: 07:52 "unknown muscle spams medication" [Active]; losartan 25 mg Oral tab 1 tab once daily hb [Active]; methocarbamol 500 mg Oral tab 2 tabs 4 times per day [Active]; omeprazole 40 mg Oral cpDR 1 cap once daily [Active]; sertraline 50 mg Oral tab 1 tab once daily [Active]; carvedilol 6.25 mg Oral tab 2 times per day [Active]; sertraline 50 mg Oral tab 1 tab once daily [Active]; - PMHx: 07:52 Depression; Hypertension; muscle spams; hb - Immunization history:: Adult Immunizations up to date. - Social history:: Smoking status: Patient denies any tobacco usage or history of. Screenin:26 Abuse screen: Denies threats or abuse. Denies injuries from another. Nutritional zb screening: No deficits noted. Tuberculosis screening: No symptoms or risk factors identified. Tuberculosis screening: Possible symptoms: None Risk factors: None. Fall Risk None identified. No fall in past 12 months (0 pts). No secondary diagnosis (0 pts). IV access (20 points). Ambulatory Aid- None/Bed Rest/Nurse Assist (0 pts). Gait- Normal/Bed Rest/Wheelchair (0 pts) Mental Status- Overestimates/Forgets Limitations (15 pts.). Total Norris Fall Scale indicates No Risk (0-24 pts). Assessment: 08:18 General: Appears in no apparent distress. comfortable, obese, well groomed, Behavior is zb calm, cooperative, appropriate for age, Denies fever, feeling ill, fatigue. Pain: Complains of pain in right hand and right arm Pain radiates to right arm Pain currently is 8 out of 10 on a pain scale. Quality of pain is described as aching, tingling, Pain began 1 day ago. Is continuous. Neuro: No deficits noted. Level of Consciousness is awake, alert, obeys commands, Oriented to time, situation. Cardiovascular: No deficits noted. Reports None Capillary refill < 3 seconds in bilateral fingers. Respiratory: No deficits noted. Airway is patent. GI: No deficits noted. No signs and/or symptoms were reported involving the gastrointestinal system. : No deficits noted. No signs and/or symptoms were reported regarding the genitourinary system. EENT: No deficits noted. No signs and/or symptoms were reported regarding the EENT system. Derm: No deficits noted. No signs and/or symptoms reported regarding the dermatologic system. Skin is intact, is healthy with good turgor. Musculoskeletal: Reports pain in right hand and right arm since yesterday. Pain is 8 out of 10 on a pain scale. Injury Description: pt states since yesterday she has been having pain in her right hand, limited ROM, stiffness, discomfort. tingling radiates up the arm. pt states she took a methacarbamol for pain but had not effect. 09:48 Reassessment: Patient appears in no apparent distress at this time. No changes from sv previously documented assessment. Patient and/or family updated on plan of care and expected duration. Pain level reassessed. Patient is alert, oriented x 3, equal unlabored respirations, skin warm/dry/pink. Vital Signs: 07:46 BP 152 / 78; Pulse 70; Resp 16; Temp 97.7(TE); Pulse Ox 96% ; Weight 113.4 kg; Height 5 hb ft. 7 in. (170.18 cm); Pain 8/10; 08:40 BP 111 / 71; Pulse 64; Resp 16; Pulse Ox 97% on R/A; zb 09:48 BP 133 / 78; Pulse 65; Resp 16; Pulse Ox 97% ; sv 07:46 Body Mass Index 39.16 (113.40 kg, 170.18 cm) hb ED Course: 07:34 Patient arrived in ED. ds1 07:39 Ángel Olivas MD is Attending Physician. kdr 07:43 Gissel Salcido, RN is Primary Nurse. ph 07:50 Triage completed. hb 07:52 Arm band placed on. hb 08:25 No provider procedures requiring assistance completed. Inserted saline lock: 22 gauge zb in left antecubital area, using aseptic technique. Missed attempt(s): 20 gauge in left hand. 08:27 Patient has correct armband on for positive identification. Bed in low position. Call zb light in reach. Side rails up X 1. Door closed. Noise minimized. Warm blanket given. Head of bed elevated. 09:03 LAB Add On Sent. sv 09:48 IV discontinued, intact, bleeding controlled, No redness/swelling at site. Pressure sv dressing applied. Administered Medications: 08:18 Drug: Flexeril 10 mg Route: PO; zb 09:49 Follow up: Response: No adverse reaction sv 08:18 Drug: TORadol - Ketorolac 15 mg Route: IVP; Site: left antecubital; zb 09:49 Follow up: Response: No adverse reaction sv Outcome: 09:38 Discharge ordered by . kdr 09:49 Discharged to home ambulatory. sv 09:49 Condition: stable 09:49 Discharge instructions given to patient, Instructed on discharge instructions, follow up and referral plans. medication usage, Demonstrated understanding of instructions, follow-up care, medications, Prescriptions given X 2. 09:49 Patient left the ED. sv Signatures: Francine Macias RN RN sv Ángel Olivas MD MD kdr Sanford, Demi ds1 Gissel Salcido RN RN ph Baxter, Heather, RN RN hb Brown, Zipporah, RN RN zb
--- NOTE | 2020-06-18 09:39 | EDPHYS ---
Physician Documentation [facility] Name: Vandana Garcia Age: 65 yrs Sex: Female : 1955 Arrival Date: 06/18/2020 Time: 07:34 Bed 5 Private MD: ED Physician Ángel Olivas HPI: 06/18 07:52 This 65 yrs old Female presents to ER via Ambulatory with complaints of Hand kdr Stiffness. 07:52 The patient or guardian reports pain, tenderness, stiffness. The complaints affect the kdr right hand diffusely. Context: The problem was sustained at home, resulted from an unknown cause. Onset: The symptoms/episode began/occurred suddenly, 2 day(s) ago. Modifying factors: The symptoms are alleviated by nothing, the symptoms are aggravated by movement. Associated signs and symptoms: Pertinent positives: The patient has generalized aches and pains and believes that she has fibromyalgia based on her symptpoms. Severity of symptoms: At their worst the symptoms were mild, in the emergency department the symptoms are unchanged. The patient has experienced a previous episode, States that last time, it was just her thumb and that she was told it may be gout.. The patient has not recently seen a physician. Historical: - Allergies: 07:52 Phenergan; hb 07:52 Zithromax; hb - Home Meds: 07:52 "unknown muscle spams medication" [Active]; losartan 25 mg Oral tab 1 tab once daily hb [Active]; methocarbamol 500 mg Oral tab 2 tabs 4 times per day [Active]; omeprazole 40 mg Oral cpDR 1 cap once daily [Active]; sertraline 50 mg Oral tab 1 tab once daily [Active]; carvedilol 6.25 mg Oral tab 2 times per day [Active]; sertraline 50 mg Oral tab 1 tab once daily [Active]; - PMHx: 07:52 Depression; Hypertension; muscle spams; hb - Immunization history:: Adult Immunizations up to date. - Social history:: Smoking status: Patient denies any tobacco usage or history of. ROS: 07:52 Constitutional: Negative for fever, chills, and weight loss, Eyes: Negative for injury, kdr pain, redness, and discharge, Neck: Negative for injury, pain, and swelling, Cardiovascular: Negative for chest pain, palpitations, and edema, Respiratory: Negative for shortness of breath, cough, wheezing, and pleuritic chest pain, Abdomen/GI: Negative for abdominal pain, nausea, vomiting, diarrhea, and constipation, Back: Negative for injury and pain, : Negative for injury, bleeding, discharge, and swelling, Skin: Negative for injury, rash, and discoloration, Neuro: Negative for headache, weakness, numbness, tingling, and seizure activity. Psych: Negative for depression, anxiety, suicide ideation, homicidal ideation, and hallucinations, Allergy/Immunology: Negative for hives, rash, and allergies, Endocrine: Negative for neck swelling, polydipsia, polyuria, polyphagia, and marked weight changes, Hematologic/Lymphatic: Negative for swollen nodes, abnormal bleeding, and unusual bruising. 07:52 MS/extremity: Positive for Exam: 08:18 Constitutional: This is a well developed, well nourished patient who is awake, alert, kdr and in no acute distress. 08:18 Musculoskeletal/extremity: ROM: limited active range of motion, limited passive range of motion, right hand, The is no apparent injury or swelling to the fingers of the right hand . She states that the pain radiates to her elbow. She denies any injury ot other precipitating cause, Circulation is intact in all extremities. Sensation intact. Tingling of extremity. Slight tingling to finger tips on right hand Vital Signs: 07:46 BP 152 / 78; Pulse 70; Resp 16; Temp 97.7(TE); Pulse Ox 96% ; Weight 113.4 kg; Height 5 hb ft. 7 in. (170.18 cm); Pain 8/10; 08:40 BP 111 / 71; Pulse 64; Resp 16; Pulse Ox 97% on R/A; zb 09:48 BP 133 / 78; Pulse 65; Resp 16; Pulse Ox 97% ; sv 07:46 Body Mass Index 39.16 (113.40 kg, 170.18 cm) hb MDM: 09:38 Patient medically screened. kdr 09:41 Data reviewed: vital signs, nurses notes, lab test result(s). Counseling: I had a kdr detailed discussion with the patient and/or guardian regarding: the historical points, exam findings, and any diagnostic results supporting the discharge/admit diagnosis, lab results, the need for outpatient follow up. 06/18 07:49 Order name: Comprehensive Metabolic Panel; Complete Time: 09:28 kdr 06/18 07:49 Order name: CBC with Diff; Complete Time: : kdr 06/18 08:37 Order name: LAB Add On eb 06/18 08:45 Order name: Magnesium; Complete Time: 09: EDMS Administered Medications: 08:18 Drug: Flexeril 10 mg Route: PO; zb 09:49 Follow up: Response: No adverse reaction sv 08:18 Drug: TORadol - Ketorolac 15 mg Route: IVP; Site: left antecubital; zb 09:49 Follow up: Response: No adverse reaction sv Disposition: 06/18/20 09:38 Discharged to Home. Impression: Right hand forearm staffness/tingling, Radiculopathy, Radiculopathy, cervical region. - Condition is Stable. - Discharge Instructions: Cervical Radiculopathy, Neuropathic Pain, Radicular Pain, Hand Pain. - Prescriptions for Ibuprofen 600 mg Oral Tablet - take 1 tablet by ORAL route every 6 hours As needed take with food; 30 tablet. Medrol (Musa) 4 mg Oral Tablets, Dose Pack - take 1 tablet by ORAL route as directed - follow package instructions; 1 packet. - Medication Reconciliation Form, Thank You Letter form. - Follow up: Private Physician; When: 2 - 3 days; Reason: If symptoms return, Further diagnostic work-up, Recheck today's complaints, Continuance of care, Re-evaluation by your physician. - Problem is new. - Symptoms are unchanged. - Notes: You may benefit from an MRI of your neck and/or right forearm and hand. Continue to take your muscle relaxor as needed and directed Signatures: Dispatcher [employer] [facility] Francine Macias RN RN sv Rittger, Kevin, MD MD kdr Baxter, Heather, RN RN hb Brown, Zipporah, RN RN zb Corrections: (The following items were deleted from the chart) 09:38 09:38 06/18/2020 09:38 Discharged to Home. Impression: Right hand forearm kdr staffness/tingling. Condition is Stable. Forms are Medication Reconciliation Form, Thank You Letter, Antibiotic Education, Prescription Opioid Use. Follow up: Private Physician; When: 2 - 3 days; Reason: If symptoms return, Further diagnostic work-up, Recheck today's complaints, Continuance of care, Re-evaluation by your physician. Problem is new. Symptoms are unchanged. kdr 09:49 09:38 06/18/2020 09:38 Discharged to Home. Impression: Right hand forearm sv staffness/tingling; Radiculopathy; Radiculopathy, cervical region. Condition is Stable. Forms are Medication Reconciliation Form, Thank You Letter, Antibiotic Education, Prescription Opioid Use. Follow up: Private Physician; When: 2 - 3 days; Reason: If symptoms return, Further diagnostic work-up, Recheck today's complaints, Continuance of care, Re-evaluation by your physician. Problem is new. Symptoms are unchanged. kdr
[2020-06-18 10:02] VITALS: TEMP 97.7
[2020-06-18 10:03] VITALS: O2SAT 97
[2020-06-18 10:05] VITALS: BP 133/78
== END 2020-06-18 09:49 | disposition home or self-care (01) ==
LOC: ER 07:32
DX: M54.12 Radiculopathy, cervical region (principal); I10 Essential (primary) hypertension; F32.9 Major depressive disorder, single episode, unspecified; Z88.1 Allergy status to other antibiotic agents; Z88.8 Allergy status to other drugs, medicaments and biological substances
CPT/HCPCS: 36415; 80053; 83735; 85025; 96374; 99284